=== PATIENT | female | born 1960 | race American Indian/Alaskan Native ===

== ENCOUNTER 2018-06-26 04:58 | Emergency (ER) | payer BC ==
[2018-06-26] MEDS ORDERED: NACL 0.9% 500 ML 500 ML IV ONE (05:06)
[2018-06-26] MEDS ORDERED: TYLENOL PO STA (05:06)
[2018-06-26] MEDS ORDERED: IBUPROFEN PO ONE (05:31)
--- NOTE | 2018-06-26 05:32 | Event Note ---
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 No recent travel. Denies physical pain. Appears very clinically well. No recent antibiotic use. Reportedly receive influenza vaccination. EKG abnormal, however, no cardiac complaints endorsed. We will treat supportively and symptomatically, and obtain basic laboratory studies, urinalysis, rapid flu, rapid strep. Vital Signs 06/26/18 05:04 Temperature 103 F H Pulse Rate 109 H Respiratory 18 Rate Blood Pressure 130/73 [Right] O2 Sat by Pulse 96 Oximetry Lab Results 06/26/18 Range/Units 05:10 VBG pH 7.478 H (7.320-7.420)
--- NOTE | 2018-06-26 05:33 | XRay Report ---
PROCEDURE: XR CHEST ROUTINE 2V TECHNIQUE: PA and lateral views of the chest were obtained. HISTORY: possible Sepsis COMPARISONS: None FINDINGS: The lungs are clear. Pleural fluid is not seen. The heart size is normal. The lungs are not congested . The skeletal structures are well-maintained. IMPRESSION: Within normal limits.. This document is electronically signed by Miguel Valente MD., June 26 2018 05:31:02 AM ET
[2018-06-26 05:40] LABS: INR 1.19 (0.87-1.13)
[2018-06-26 05:45] LABS: Red Blood Count 4.08 M/mm3 (3.65-5.03)
[2018-06-26 05:46] LABS: Hematocrit 35.3 % (30.3-42.9); Hemoglobin 12.1 gm/dl (10.1-14.3); Mean Corpuscular HGB Conc 34 % (30-34); Mean Corpuscular Volume 86 fl (79-97); Platelet Count 177 K/mm3 (140-440); Red Cell Distribution Width 14.1 % (13.2-15.2)
[2018-06-26 05:47] LABS: Basophils % (Auto) 0.2 % (0.0-1.8); Lymphocytes # (Auto) 0.9 K/mm3 (1.2-5.4); Lymphocytes % (Auto) 5.3 % (13.4-35.0); Mean Platelet Volume 9.2 fl (6-12); Monocytes # (Auto) 0.9 K/mm3 (0.0-0.8); Monocytes % (Auto) 5.3 % (0.0-7.3)
[2018-06-26] MEDS ORDERED: NACL 0.9% 1000 ML 1,000 ML IV ONE (05:58)
[2018-06-26] MEDS ORDERED: K-DUR PO ONE (05:58)
[2018-06-26] MEDS ORDERED: NACL 0.9% 1000 ML 2,000 ML IV ONE (05:58)
[2018-06-26] MEDS ORDERED: KCL 10MEQ/100ML 10 MEQ/100 ML BAG IV SCH (06:00)
--- NOTE | 2018-06-26 06:19 | Emergency Department Report ---
HPI - General Chief Complaint: Fever Time Seen by Provider: 06/26/18 06:06 - HPI HPI: Room 3 The patient is a 58-year-old female presenting with a chief complaint fever and weakness. The patient states yesterday she began feeling weak/tired. At work she developed chills and body aches and fever. Patient states his symptoms continued today prompting her to have family bring her to the emergency department. Patient denies chest pain or shortness of breath. Patient denies cough or rhinorrhea. Patient denies dysuria or hematuria. The patient was to nausea but denies vomiting or diarrhea. Patient denies sick contacts. Patient has no complaints now at rest after receiving IV fluids and medication prior to my arrival Location: [See above] Duration: [See above] Quality: Aching Severity: [See above] Modifying factors: [see above] Context: [see above] Mode of transportation: [not driving] ED Past Medical Hx - Past Medical History Previous Medical History?: Yes Hx Hypertension: Yes - Surgical History Past Surgical History?: Yes Additional Surgical History: tubal ligation - Family History Family history: no significant - Social History Smoking Status: Never Smoker Substance Use Type: None - Medications Home Medications: Home Medications Medication Instructions Recorded Confirmed Last Taken Type HYDROcodone/APAP 5-325 [Mckinney 1 each PO Q6HR PRN #10 tablet 06/26/18 Unknown Rx 5/325] Ondansetron [Zofran ODT TAB] 8 mg PO Q8HR #20 tab.rapdis 06/26/18 Unknown Rx Sulfamethoxazole/Trimethoprim 1 each PO BID #20 tablet 06/26/18 Unknown Rx [Bactrim DS TAB] ED Review of Systems ROS: Stated complaint: FEVER, CHILLS, WEAKNESS, NAUSEA Other details as noted in HPI Constitutional: fever, weakness Eyes: denies: eye pain ENT: denies: congestion Respiratory: denies: shortness of breath Cardiovascular: denies: chest pain Endocrine: no symptoms reported Gastrointestinal: nausea. denies: vomiting Genitourinary: denies: dysuria, hematuria Musculoskeletal: denies: back pain Neurological: denies: headache Physical Exam - Physical Exam Vital Signs: Vital Signs 06/26/18 06/26/18 06/26/18 05:04 05:49 06:05 Temperature 103 F H Pulse Rate 109 H Respiratory 18 21 16 Rate Blood Pressure 130/73 [Right] O2 Sat by Pulse 96 97 Oximetry Physical Exam: GENERAL: The patient is well-developed well-nourished female lying on stretcher not appearing to be in acute distress. [] HEENT: Normocephalic. Atraumatic. Extraocular motions are intact. Patient has moist mucous membranes. NECK: Supple. No meningitic signs are noted. Trachea midline CHEST/LUNGS: Clear to auscultation. There is no respiratory distress noted. HEART/CARDIOVASCULAR: Regular. There is no tachycardia. There is no gallop rub or murmur. ABDOMEN: Abdomen is soft, nontender. Patient has normal bowel sounds. There is no abdominal distention. SKIN: There is no rash. There is no edema. There is no diaphoresis. NEURO: The patient is awake, alert, and oriented. The patient is cooperative. The patient has no focal neurologic deficits. The patient has normal speech MUSCULOSKELETAL: There is no evidence of acute injury. ED Course Vital Signs 06/26/18 06/26/18 06/26/18 05:04 05:49 06:05 Temperature 103 F H Pulse Rate 109 H Respiratory 18 21 16 Rate Blood Pressure 130/73 [Right] O2 Sat by Pulse 96 97 Oximetry ED Medical Decision Making - Lab Data Result diagrams: 06/26/18 05:10 06/26/18 05:10 - EKG Data -: EKG Interpreted by Me EKG shows normal: sinus rhythm Rate: tachycardia (101 bpm) - EKG Data When compared to previous EKG there are: previous EKG unavailable Interpretation: nonspecific ST-T wave nestor (ST depression in leads 1, 2, 3, aVF, V3, V4, V5, V6) - Radiology Data Radiology results: report reviewed (chest x-ray, right upper quadrant ultrasound), image reviewed (chest x-ray, right upper quadrant ultrasound) interpreted by me: Chest x-ray-no focal infiltrate, no pneumothorax [facility] [address] [place] [address] XRay Report Signed Patient: RAMON MADDEN MR#: [id number] : 1960 Acct:[id number] Age/Sex: 58 / F ADM Date: 06/26/18 Loc: ED Attending Dr: Ordering Physician: ED DOC, Date of Service: 06/26/18 Procedure(s): XR chest routine 2V Accession Number(s): [id number] cc: ED MD RAVEN Fluoro Time In Minutes: PROCEDURE: XR CHEST ROUTINE 2V TECHNIQUE: PA and lateral views of the chest were obtained. HISTORY: possible Sepsis COMPARISONS: None FINDINGS: The lungs are clear. Pleural fluid is not seen. The heart size is normal. The lungs are not congested. The skeletal structures are well-maintained. IMPRESSION: Within normal limits.. This document is electronically signed by Marycruz Valente MD., June 26 2018 05:31:02 AM ET Transcribed By: RB Dictated By: MARYCRUZ VALENTE MD Electronically Authenticated By: MARYCRUZ VALENTE MD Signed Date/Time: 06/26/1833 DD/ 5 TD/TT: 06/26/18526 [facility] [address] [place] [address] [facility] rasound Report Signed Patient: RAMON MADDEN MR#: [id number] : 1960 Acct:[id number] Age/Sex: 58 / F ADM Date: 06/26/18 Loc: ED Attending Dr: Ordering Physician: BLANCA TANNER MD Date of Service: 06/26/18 Procedure(s): US abdomen limited Accession Number(s): [id number] cc: BLANCA TANNER MD ULTRASOUND ABDOMEN LIMITED: TECHNIQUE: Transabdominal ultrasound with color Doppler interrogation. HISTORY: Elevated liver function tests, fever. COMPARISON: none. FINDINGS: LIVER: Normal. BILIARY SYSTEM: Normal. PANCREAS: Normal. RIGHT KIDNEY: Normal. PROXIMAL AORTA: Normal. ASCITES: None. IMPRESSION: Unremarkable exam. Transcribed By: TTR Dictated By: HENNA MCCARTHY JR, MD Electronically Authenticated By: HENNA MCCARTHY JR, MD Signed Date/Time: 06/26/18 08 DD/ 08 TD/TT: 06/26/18 08 - Differential Diagnosis pyelonephritis, influenza, bacteremia Critical care attestation.: If time is entered above; I have spent that time in minutes in the direct care of this critically ill patient, excluding procedure time. ED Disposition Clinical Impression: UTI (urinary tract infection), Leukocytosis, Elevated LFTs Disposition: DC-01 TO HOME OR SELFCARE Is pt being admited?: No Does the pt Need Aspirin: No Condition: Stable Instructions: Acute Pyelonephritis (ED) Additional Instructions: Return to the emergency department immediately should you develop worsening symptoms, fever, inability to tolerate food or liquid or any other concerns. Prescriptions: Sulfamethoxazole/Trimethoprim [Bactrim DS TAB] 1 each PO BID #20 tablet HYDROcodone/APAP 5-325 [Mckinney 5/325] 1 each PO Q6HR PRN #10 tablet PRN Reason: Pain Ondansetron [Zofran ODT TAB] 8 mg PO Q8HR #20 tab.rapdis Referrals: LIUDMILA SIEGELCOUNT INCLUDES THE [facility] MD JAVIER [Primary Care Provider] - 3-5 Days DIXON VELEZ MD [Staff Physician] - 3-5 Days (Dr. Velez is a first leveler. Please follow up with him for further evaluation of your elevated liver function tests) Time of Disposition: 08:27
[2018-06-26 07:15] LABS: Bacteria,Urine 3+ /HPF (Negative); Bilirubin,Urine NEG (Negative); Blood,Urine MOD (Negative); Color,Urine Amber (Yellow); Hyaline Casts,Urine 1 /LPF; Mucus,Urine FEW /HPF
[2018-06-26] MEDS ORDERED: ROCEPHIN/NS 1 GM/50 ML 1 GM/50 ML BAG IV ONE (07:24)
[2018-06-26 08:01] VITALS: BP 138/65
--- NOTE | 2018-06-26 08:08 | Ultrasound Report ---
ULTRASOUND ABDOMEN LIMITED: TECHNIQUE: Transabdominal ultrasound with color Doppler interrogation. HISTORY: Elevated liver function tests, fever. COMPARISON: none. FINDINGS: LIVER: Normal. BILIARY SYSTEM: Normal. PANCREAS: Normal. RIGHT KIDNEY: Normal. PROXIMAL AORTA: Normal. ASCITES: None. IMPRESSION: Unremarkable exam.
== END 2018-06-26 09:17 | disposition home or self-care (01) ==
LOC: ED 04:58 → EEVIPCON 04:58 → ED 09:17
DX: N39.0 Urinary tract infection, site not specified (principal); D72.829 Elevated white blood cell count, unspecified; I10 Essential (primary) hypertension; Z98.51 Tubal ligation status
CPT/HCPCS: 36415; 71046; 76705; 80053; 81001; 82140; 82550; 82805; 83735; 84484; 85025; 85610; 87040; 87086; 87116; 87400; 87430; 93005; 93010; 96365; 99285; J0696; J7030; J7040

== ENCOUNTER 2018-06-28 12:36 | Inpatient (IN) | payer BC ==
--- NOTE | 2018-06-28 12:52 | Emergency Department Report ---
Blank Doc - Documentation Documentation: This is a 58-year-old female that presents with n/v and weakness. Stated her GI sent her to the ED for further evaluation and treatment. This initial assessment/diagnostic orders/clinical plan/treatment(s) is/are subject to change based on patient's health status, clinical progression and re- assessment by fellow clinical providers in the ED. Further treatment and workup at subsequent clinical providers discretion. Patient/guardians urged not to elope from the ED as their condition may be serious if not clinically assessed and managed. Initial orders include: 1- Patient sent to MAIN ED for further evaluation and treatment 2- labs 3- EKG
[2018-06-28] MEDS ORDERED: ZOFRAN ODT PO ONE (12:55)
[2018-06-28] MEDS ORDERED: NACL 0.9% 1000 ML 1,000 ML IV ONE (13:48)
--- NOTE | 2018-06-28 13:48 | Emergency Department Report ---
HPI - General Chief Complaint: Nausea/Vomiting/Diarrhea Time Seen by Provider: 06/28/18 12:49 - HPI HPI: 58-year-old -[place] female presents to the emergency department with complaint of continued nausea, vomiting and some generalized weakness. The patient was here 2 days ago and diagnosed with pyelonephritis. She had the nausea and vomiting at that time but also was having some chills and subjective fever, which she says has resolved. She had an ultrasound done at that time that did not show any acute process. She was found to have a urinary tract infection and was given Rocephin and sent home with antibiotics. She was referred to gastroenterology and did have an outpatient follow-up. She presents with the office note from Dr. Levin saying that the patient has intractable nausea and vomiting, elevated liver enzymes, and should come to the emergency department for further treatment and evaluation. Otherwise she denies any past medical history. No recent travel. The patient says that she has been taking the antibiotics for the previous urinary tract infection. ED Past Medical Hx - Past Medical History Previous Medical History?: Yes Hx Hypertension: Yes - Surgical History Past Surgical History?: Yes Additional Surgical History: tubal ligation - Social History Smoking Status: Never Smoker Substance Use Type: Alcohol - Medications Home Medications: Home Medications Medication Instructions Recorded Confirmed Last Taken Type HYDROcodone/APAP 5-325 [Larimer 1 each PO Q6HR PRN #10 tablet 06/26/18 Unknown Rx 5/325] Ondansetron [Zofran ODT TAB] 8 mg PO Q8HR #20 tab.rapdis 06/26/18 Unknown Rx Sulfamethoxazole/Trimethoprim 1 each PO BID #20 tablet 06/26/18 Unknown Rx [Bactrim DS TAB] ED Review of Systems ROS: Stated complaint: N/V AND WEAKNESS Other details as noted in HPI Constitutional: weakness. denies: malaise Eyes: denies: eye pain, vision change ENT: denies: ear pain, throat pain Respiratory: denies: cough, shortness of breath Cardiovascular: denies: chest pain, palpitations Gastrointestinal: nausea, vomiting Genitourinary: denies: dysuria, discharge Musculoskeletal: denies: back pain, arthralgia Skin: denies: rash, lesions Neurological: denies: headache, weakness Physical Exam - Physical Exam Vital Signs: Vital Signs 06/28/18 12:50 Temperature 100.8 F H Pulse Rate 90 Respiratory 16 Rate Blood Pressure 132/63 O2 Sat by Pulse 96 Oximetry Physical Exam: GENERAL: The patient is well-developed well-nourished. HENT: Normocephalic. Atraumatic. Patient has moist mucous membranes. EYES: Extraocular motions are intact. Pupils equal reactive to light bilaterally. NECK: Supple. Trachea is midline. CHEST/LUNGS: Clear to auscultation. There is no respiratory distress noted. HEART/CARDIOVASCULAR: Regular. There is no tachycardia. There is no murmur. ABDOMEN: Abdomen is soft, nontender. Patient has normal bowel sounds. There is no abdominal distention. SKIN: Skin is warm and dry. NEURO: The patient is awake, alert, and oriented. The patient is cooperative. The patient has no focal neurologic deficits. The patient has normal speech. MUSCULOSKELETAL: There is no tenderness or deformity. There is no evidence of acute injury. ED Course Vital Signs 06/28/18 12:50 Temperature 100.8 F H Pulse Rate 90 Respiratory 16 Rate Blood Pressure 132/63 O2 Sat by Pulse 96 Oximetry - Consultations Consultation #1: 06/28/18 18:23 I spoke with the general surgeon on-call, Dr. Wynne, regarding the CT findings of acute appendicitis. Given that the patient does not have any abdominal pain and does not appear in any acute distress, he asked for the patient to be admitted to the hospitalist service and he will see the patient as a consult. IVF and IV antibiotics. ED Medical Decision Making - Lab Data Result diagrams: 06/28/18 13:38 06/28/18 13:38 - EKG Data -: EKG Interpreted by Id EKG shows normal: sinus rhythm, axis, intervals, QRS complexes (LVH), ST-T waves Rate: normal - EKG Data Interpretation: LVH - Radiology Data Radiology results: report reviewed PROCEDURE: CT ABDOMEN PELVIS WO CON TECHNIQUE: Computerized axial tomography of the abdomen and pelvis was performed without intravenous contrast. This study is performed without intravascular contrast material and its sensitivity for abdominal and pelvic pathology, including neoplasms, inflammation, abscess, free fluid, thrombosis, arterial dissection and infarction, is reduced compared with a contrast enhanced study. HISTORY: Abd pain COMPARISONS: None . PROCEDURE: CT ABDOMEN PELVIS WO CON TECHNIQUE: Computerized axial tomography of the abdomen and pelvis was performed without intravenous contrast. This study is performed without intravascular contrast material and its sensitivity for abdominal and pelvic pathology, including neoplasms, inflammation, abscess, free fluid, thrombosis, arterial dissection and infarction, is reduced compared with a contrast enhanced study. HISTORY: Abd pain COMPARISONS: None . FINDINGS: Slight delay in interpretation, the initial exam was incomplete. Lower Lung whitley: No focal abnormalities seen. Upper Abdomen: There is a subtle low-density lesion in the right lobe of the liver inferiorly measuring 6.5 x 4.7 cm seen on axial image 47 series 2. The unenhanced images of the liver otherwise unremarkable. The gallbladder, adrenal glands, pancreas and spleen are unremarkable. Kidneys, Ureters and Urinary bladder: No abnormalities are seen. Retroperitoneum: Abdominal aorta appears normal. Nonspecific subcentimeter lymph nodes are seen in the retroperitoneum. No pathologically enlarged lymph nodes are identified. Bowel: The appendix is distended measuring 1.5 cm with diffuse inflammatory change in the adjacent mesentery. The appearance is consistent with acute appendicitis. No abscess, ascites or free intraperitoneal gas is visualized. No evidence of bowel obstruction. Bowel loops otherwise unremarkable. Small umbilical hernia containing adipose tissue is visualized. No herniated loops of bowel are seen. Reproductive organs: Uterus is retroverted. No abnormal adnexal masses are seen. Other: None IMPRESSION: Findings consistent with acute appendicitis. No abscess, free air or bowel obstruction visualized. Abnormal low-density lesion right lobe of the liver measuring 6.5 cm. Follow-up dynamic contrast enhanced CT scan is recommended for further evaluation. Both benign and malignant lesions of the liver could present in this manner. Critical value: I discussed these findings in detail with ANABELA Voss on 06/28/2018 at 5:19 PM Eastern standard time. She informs me the attending physician will be notified immediately. This document is electronically signed by Obey eLonard MD., Jun 28 2018 05:22:52 PM ET Transcribed By: VIANNEY Dictated By: OBEY LEONARD MD Electronically Authenticated By: OBEY LEONARD MD Signed Date/Time: 06/28/18 9760 - Medical Decision Making Patient presents with ongoing nausea and vomiting that has now caused her to have some generalized weakness. Patient's labs show a leukocytosis and some elevation in her LFTs and some renal insufficiency unchanged from previous. She previously had a negative ultrasound of the abdomen done so this time a CT scan of the abdomen and pelvis without contrast was done. It shows a 6.5 cm liver mass and concerns for acute appendicitis. I spoke with general surgeon documentation analyst who will see the patient has a consult and would like the patient admitted to the hospitalist service. Vital signs stable throughout her ED course. All of the labs, imaging and the plan for admission were discussed with the patient and she understands and agrees. The patient was accepted for admission by the hospitalist service, Dr. Tang. - Differential Diagnosis gastritis, colitis, malignancy, appendicitis Critical Care Time: No Critical care attestation.: If time is entered above; I have spent that time in minutes in the direct care of this critically ill patient, excluding procedure time. ED Disposition Clinical Impression: Liver mass Acute appendicitis Qualifiers: Acute appendicitis type: unspecified acute appendicitis type Qualified Code(s): K35.80 - Unspecified acute appendicitis Intractable nausea and vomiting Qualifiers: Vomiting type: unspecified Qualified Code(s): R11.2 - Nausea with vomiting, unspecified Disposition: DC-09 OP ADMIT IP TO THIS HOSP Is pt being admited?: Yes Condition: Fair Time of Disposition: 18:28
[2018-06-28 13:55] LABS: Hematocrit 36.3 % (30.3-42.9); Hemoglobin 12.6 gm/dl (10.1-14.3); Mean Corpuscular HGB Conc 35 % (30-34); Mean Corpuscular Volume 87 fl (79-97); Platelet Count 188 K/mm3 (140-440); Red Cell Distribution Width 14.5 % (13.2-15.2)
[2018-06-28 14:13] LABS: Albumin 3.5 g/dL (3.9-5); Bilirubin,Direct 0.8 mg/dL (0-0.2); Calcium 9.2 mg/dL (8.4-10.2)
[2018-06-28 14:18] LABS: Bacteria,Urine 1+ /HPF (Negative); Bilirubin,Urine NEG (Negative); Blood,Urine MOD (Negative); Color,Urine Amber (Yellow); Mucus,Urine FEW /HPF
[2018-06-28 14:43] LABS: Band Neutrophils # (Manual) 0.5 K/mm3; Basophils % (Manual) 0 % (0.0-1.8); Eosinophils % (Manual) 0 % (0.0-4.3); Total Cells Counted 100
[2018-06-28 14:44] LABS: Platelet Estimate Consistent w Auto; RBC Morphology Normal
[2018-06-28] MEDS: KCL 10MEQ/100ML 10 MEQ/100 ML BAG IV SCH ×3 (15:18→23:02)
[2018-06-28] MEDS ORDERED: REGLAN IV ONE (15:53)
--- NOTE | 2018-06-28 17:24 | Cat Scan Report ---
PROCEDURE: CT ABDOMEN PELVIS WO CON TECHNIQUE: Computerized axial tomography of the abdomen and pelvis was performed without intravenous contrast. This study is performed without intravascular contrast material and its sensitivity for ab dominal and pelvic pathology, including neoplasms, inflammation, abscess, free fluid, thrombosis, art erial dissection and infarction, is reduced compared with a contrast enhanced study. HISTORY: Abd pain COMPARISONS: None . PROCEDURE: CT ABDOMEN PELVIS WO CON TECHNIQUE: Computerized axial tomography of the abdomen and pelvis was performed without intravenous contrast. This study is performed without intravascular contrast material and its sensitivity for ab dominal and pelvic pathology, including neoplasms, inflammation, abscess, free fluid, thrombosis, art erial dissection and infarction, is reduced compared with a contrast enhanced study. HISTORY: Abd pain COMPARISONS: None . FINDINGS: Slight delay in interpretation, the initial exam was incomplete. Lower Lung whitley: No focal abnormalities seen. Upper Abdomen: There is a subtle low-density lesion in the right lobe of the liver inferiorly measur ing 6.5 x 4.7 cm seen on axial image 47 series 2. The unenhanced images of the liver otherwise unrema rkable. The gallbladder, adrenal glands, pancreas and spleen are unremarkable. Kidneys, Ureters and Urinary bladder: No abnormalities are seen. Retroperitoneum: Abdominal aorta appears normal. Nonspecific subcentimeter lymph nodes are seen in the retroperitoneum. No pathologically enlarged ly mph nodes are identified. Bowel: The appendix is distended measuring 1.5 cm with diffuse inflammatory change in the adjacent m esentery. The appearance is consistent with acute appendicitis. No abscess, ascites or free intraperi toneal gas is visualized. No evidence of bowel obstruction. Bowel loops otherwise unremarkable. Small umbilical hernia containing adipose tissue is visualized. No herniated loops of bowel are seen. Reproductive organs: Uterus is retroverted. No abnormal adnexal masses are seen. Other: None IMPRESSION: Findings consistent with acute appendicitis. No abscess, free air or bowel obstruction visualized. Abnormal low-density lesion right lobe of the liver measuring 6.5 cm. Follow-up dynamic contrast enha nced CT scan is recommended for further evaluation. Both benign and malignant lesions of the liver co uld present in this manner. Critical value: I discussed these findings in detail with ANABELA Voss on 06/28/2018 at 5:19 PM Ea allison standard time. She informs me the attending physician will be notified immediately. This document is electronically signed by Jono Saucedo MD., Jun 28 2018 05:22:52 PM ET
[2018-06-28] MEDS ORDERED: ZOSYN/NS 4.5GM/100ML 4.5 GM/100 ML VIAL IV ONE (17:33)
[2018-06-28] MEDS ORDERED: MORPHINE IV PRN (18:00)
[2018-06-28] MEDS ORDERED: ZOFRAN IV PRN (18:00)
[2018-06-28] MEDS ORDERED: SODIUM CHLORIDE FLUSH SYRINGE 10 ML IV PRN (18:00)
[2018-06-28] MEDS ORDERED: PROVENTIL IH PRN (18:00)
[2018-06-28] MEDS ORDERED: TYLENOL PO PRN (18:00)
[2018-06-28] MEDS ORDERED: K-DUR PO ONE (18:22)
--- NOTE | 2018-06-28 19:10 | History and Physical Report ---
History of Present Illness Date of admission: 06/28/18 18:00 Chief complaint: I feel sick, and im throwing up History of present illness: 58 YO Female with Obesity, HTN presents to ED for evaluation. Pt states that she has experienced nausea, and multiple episodes of vomiting over the past 3 days with persistent symptoms over the same time frame. Pt was seen and evaluated in the ED at [facility] 3 days ago and discharged with oral antibiotics and outpatient F/U with GI service. Pt seen and evaluated by the Card Punching Machine Operator and was found to have the aforementioned symptoms. Pt instructed to seek further care. Pt reevaluated in ED and found to have new evidence on CT Abdomen/Pelvis which is consistent with Acute Appendicitis. Pt also found to have evidence of SIRS and Acute Renal Failure. Pt denies fever, chills, CP, Palpitations, Trauma, BRBPR, Ingestion of food/water from new/different sources. Surgery team consulted in ED. Pt initiated on IV antibiotic therapy and admitted to Med/Surgical Floor. No prior admission for review. All listed medication reconciled at time of admission. - Past History Past Medical History: hypertension, other (Obesity) Past Surgical History: Other (Tubal ligation) Social history: , lives with family. denies: smoking, alcohol abuse, prescription drug abuse Family history: hypertension Medications and Allergies Allergies Allergy/AdvReac Type Severity Reaction Status Date / Time No Known Allergies Allergy Verified 06/26/18 05:04 Home Medications Medication Instructions Recorded Confirmed Last Taken Type HYDROcodone/APAP 5-325 [[place] 1 each PO Q6HR PRN #10 tablet 06/26/18 Unknown Rx 5/325] Ondansetron [Zofran ODT TAB] 8 mg PO Q8HR #20 tab.rapdis 06/26/18 Unknown Rx Sulfamethoxazole/Trimethoprim 1 each PO BID #20 tablet 06/26/18 Unknown Rx [Bactrim DS TAB] Active Meds: Active Medications Acetaminophen (Tylenol) 650 mg PO Q4H PRN PRN Reason: Pain MILD(1-3)/Fever >100.5/PALOMO Albuterol (Proventil) 2.5 mg IH Q4HRT PRN PRN Reason: Shortness Of Breath Cefepime HCl (Maxipime/Ns 2 Gm/100 Ml) 2 gm in 100 mls @ 200 mls/hr IV Q8HR CLAUDIA; Protocol Metronidazole (Flagyl 500 Mg/100 Ml) 500 mg in 100 mls @ 100 mls/hr IV Q8HR CLAUDIA; Protocol Morphine Sulfate (Morphine) 2 mg IV Q4H PRN PRN Reason: Pain, Moderate (4-6) Ondansetron HCl (Zofran) 4 mg IV Q8H PRN PRN Reason: Nausea And Vomiting Sodium Chloride (Sodium Chloride Flush Syringe 10 Ml) 10 ml IV BID CLAUDIA Sodium Chloride (Sodium Chloride Flush Syringe 10 Ml) 10 ml IV PRN PRN PRN Reason: LINE FLUSH Review of Systems Constitutional: no weight loss, no weight gain, no fever, no chills Ears, nose, mouth and throat: no ear pain, no ear discharge, no tinnitis, no decreased hearing, no nose pain Breasts: no change in shape, no swelling, no mass Cardiovascular: no chest pain, no orthopnea, no palpitations, no lightheadedness Respiratory: no cough, no cough with sputum, no excessive sputum, no hemoptysis, no shortness of breath Gastrointestinal: nausea, vomiting, no constipation, no change in bowel habits, no hematochezia, no loss of appetite Genitourinary Female: no pelvic pain, no flank pain, no menorrhagia, no dysuria, no urinary frequency, no urgency Rectal: no pain, no incontinence, no bleeding Musculoskeletal: no neck stiffness, no neck pain, no shooting arm pain, no arm numbness/tingling, no low back pain Integumentary: no rash, no pruritis, no redness, no sores, no wounds Neurological: no transient paralysis, no paralysis, no weakness, no parathesias, no numbness Psychiatric: no anxiety, no memory loss, no change in sleep habits, no sleep disturbances, no insomnia, no hypersomnia, no change in appetite, no change in libido Endocrine: no cold intolerance, no heat intolerance, no polyphagia, no excessive thirst, no polydipsia, no polyuria, no nocturia Hematologic/Lymphatic: no easy bruising, no easy bleeding, no lymphadenopathy, no lymphedema Allergic/Immunologic: no urticaria, no allergic rhinitis, no persistent infections, no anaphylaxis, no angioedema Exam - Constitutional Vitals: Temp Pulse Resp BP Pulse Ox 100.8 F H 76 24 115/57 96 06/28/18 12:50 06/28/18 17:30 06/28/18 17:30 06/28/18 17:30 06/28/18 17:30 General appearance: Present: mild distress, obese - EENT Eyes: Present: PERRL ENT: hearing intact, clear oral mucosa - Neck Neck: Present: supple, normal ROM - Respiratory Respiratory effort: normal Respiratory: bilateral: CTA - Cardiovascular Heart Sounds: Present: S1 & S2. Absent: rub, click - Extremities Extremities: pulses symmetrical, No edema Peripheral Pulses: within normal limits - Abdominal General gastrointestinal: Present: soft, non-tender, non-distended, normal bowel sounds Female genitourinary: Present: normal - Integumentary Integumentary: Present: clear, warm, dry - Musculoskeletal Musculoskeletal: gait normal, strength equal bilaterally - Psychiatric Psychiatric: appropriate mood/affect, intact judgment & insight - Neurologic Neurologic: CNII-XII intact, moves all extremities Results - Labs CBC & Chem 7: 06/28/18 13:38 06/28/18 13:38 Labs: Abnormal lab results 06/28/18 06/28/18 Range/Units 13:38 13:38 WBC 15.5 H (4.5-11.0) K/mm3 MCHC 35 H (30-34) % Seg Neuts % (Manual) 91.0 H (40.0-70.0) % Lymphocytes % (Manual) 4.0 L (13.4-35.0) % Seg Neutrophils # Man 14.1 H (1.8-7.7) K/mm3 Lymphocytes # (Manual) 0.6 L (1.2-5.4) K/mm3 Potassium 2.8 L* (3.6-5.0) mmol/L Chloride 95.8 L (98-107) mmol/L BUN 19 H (7-17) mg/dL Creatinine 1.7 H (0.7-1.2) mg/dL Glucose 143 H (65-100) mg/dL Total Bilirubin 1.30 H (0.1-1.2) mg/dL Direct Bilirubin 0.8 H (0-0.2) mg/dL AST 44 H (5-40) units/L ALT 84 H (7-56) units/L Albumin 3.5 L (3.9-5) g/dL Assessment and Plan - Patient Problems (1) Acute appendicitis Current Visit: Yes Status: Acute Qualifiers: Acute appendicitis type: unspecified acute appendicitis type Qualified Code(s): K35.80 - Unspecified acute appendicitis Plan to address problem: IV antibiotic therapy, CT Abdomen/Pelvis, Bowel rest, CBC, CMP, IVF resuscitation therapy, Surgical team consulted in ED, serial abdominal exam. (2) SIRS (systemic inflammatory response syndrome) Current Visit: Yes Status: Acute Plan to address problem: IV antibiotic therapy, CBC, CMP, Blood cultures, urinalysis, (3) Intractable nausea and vomiting Current Visit: Yes Status: Acute Qualifiers: Vomiting type: unspecified Qualified Code(s): R11.2 - Nausea with vomiting, unspecified Plan to address problem: Zofran prn, bowel rest, supportive care. (4) ARF (acute renal failure) with tubular necrosis Current Visit: Yes Status: Acute Plan to address problem: IVF resuscitation, monitor uop q shift, urine electrolytes, Nephrology consulted, (5) Elevated LFTs Current Visit: No Status: Acute Plan to address problem: CT Abdomen/pelvis, repeat LFT, GI consulted in ED. (6) Hypokalemia Current Visit: Yes Status: Acute Plan to address problem: repleted in ED, recheck in am. (7) DVT prophylaxis Current Visit: Yes Status: Acute Plan to address problem: SCD to BLE while in bed,
--- NOTE | 2018-06-28 19:24 | Event Note ---
Date: 06/28/[address] Lerma. Despite CT reading, patient has no pain in RLQ by history and exam. Pt is dehydrated by labs. Will resuscitate o/n, start Abx, check labs in AM and then re-evaluate. Will order additional bolus now.
[2018-06-28] MEDS ORDERED: NORCO 5/325 PO PRN (19:30)
[2018-06-28] MEDS: NACL 0.9% 1000 ML 1,000 ML IV ONE ×2 (20:26→21:58)
[2018-06-28] MEDS: NACL 0.9% 1000 ML 1,000 ML IV SCH (23:08)
[2018-06-28] MEDS: FLAGYL 500 MG/100 ML 500 MG/100 ML BAG IV SCH (23:10)
[2018-06-29] MEDS: KCL 10MEQ/100ML 10 MEQ/100 ML BAG IV SCH ×5 (00:20→19:59)
[2018-06-29] MEDS: MAXIPIME/NS 2 GM/100 ML 2 GM/100 ML BAG IV SCH ×4 (00:24→22:00)
[2018-06-29] MEDS: SODIUM CHLORIDE FLUSH SYRINGE 10 ML IV SCH ×3 (00:37→22:30)
[2018-06-29] MEDS ORDERED: ZOFRAN IV PRN (05:07)
[2018-06-29 06:11] LABS: Hematocrit 31.3 % (30.3-42.9); Hemoglobin 10.7 gm/dl (10.1-14.3); Mean Corpuscular HGB Conc 34 % (30-34); Mean Corpuscular Volume 88 fl (79-97); Platelet Count 198 K/mm3 (140-440); Red Blood Count 3.56 M/mm3 (3.65-5.03); Red Cell Distribution Width 14.6 % (13.2-15.2)
[2018-06-29] MEDS: FLAGYL 500 MG/100 ML 500 MG/100 ML BAG IV SCH ×3 (06:20→22:45)
[2018-06-29 06:27] LABS: BUN/Creatinine Ratio 9; Blood Urea Nitrogen 10 mg/dL (7-17); Calcium 8.5 mg/dL (8.4-10.2); Hemolysis Index 0
[2018-06-29] MEDS: TYLENOL PR PRN ×2 (06:40→12:23)
[2018-06-29] MEDS ORDERED: PHENERGAN PR PRN (07:40)
--- NOTE | 2018-06-29 07:41 | Consultation ---
History of Present Illness Consult date: 06/29/18 Reason for consult: other (vomiting) Requesting physician: BARBARA BLACK Chief complaint: vomiting and weakness - History of present illness History of present illness: 58yo F presented to the emergency room last night due to persistent vomiting. She originally began to feel ill this past Tuesday. At that time she was seen in the emergency room and felt the have a viral illness or possibly pyelonephritis. She was started on antibiotics and told to follow-up with GI. The G.I. physician instructed the patient to go to the emergency room again last night for reevaluation of the continued vomiting. On Tuesday, her symptoms began with generalized weakness, achiness, fevers, chills, nausea and vomiting. Denies any chest pain or difficulty breathing. No productive cough. No dysuria symptoms. The fevers and chills resolved but her vomiting became worse. She has no pain in the abdomen unless she turns to the side and then she may feel a slight ache in the sides. She last past flatus yesterday. Past History Past Medical History: hypertension, other (Obesity) Past Surgical History: Other (Tubal ligation) Social history: , lives with family. denies: smoking, alcohol abuse, prescription drug abuse Family history: hypertension Medications and Allergies Allergies Allergy/AdvReac Type Severity Reaction Status Date / Time No Known Allergies Allergy Verified 06/26/18 05:04 Home Medications Medication Instructions Recorded Confirmed Last Taken Type HYDROcodone/APAP 5-325 [[place] 1 each PO Q6HR PRN #10 tablet 06/26/18 06/29/18 Unknown Rx 5/325] Ondansetron [Zofran ODT TAB] 8 mg PO Q8HR #20 tab.rapdis 06/26/18 06/29/18 Unknown Rx Sulfamethoxazole/Trimethoprim 1 each PO BID #20 tablet 06/26/18 06/29/18 Unknown Rx [Bactrim DS TAB] Amlodipine Besylate 10 mg PO DAILY 06/29/18 06/29/18 Unknown History Losartan/Hydrochlorothiazide 1 tab PO DAILY 06/29/18 06/29/18 Unknown History [Losartan-Hctz 100-25 mg Tab] Naproxen 1 tab PO BID PRN 06/29/18 06/29/18 Unknown History Active Meds: Active Medications Acetaminophen (Tylenol) 650 mg IN Q6H PRN PRN Reason: Pain, Mild (1-3) Last Admin: 06/29/18 06:40 Dose: 650 mg Documented by: Acetaminophen/Hydrocodone Bitart ([place] 5/325) 1 each PO Q6HR PRN PRN Reason: Pain Albuterol (Proventil) 2.5 mg IH Q4HRT PRN PRN Reason: Shortness Of Breath Cefepime HCl (Maxipime/Ns 2 Gm/100 Ml) 2 gm in 100 mls @ 200 mls/hr IV Q8HR CLAUDIA; Protocol Last Admin: 06/29/18 06:18 Dose: 200 mls/hr Documented by: Metronidazole (Flagyl 500 Mg/100 Ml) 500 mg in 100 mls @ 100 mls/hr IV Q8HR CLAUDIA; Protocol Last Admin: 06/29/18 06:20 Dose: 100 mls/hr Documented by: Sodium Chloride (Nacl 0.9% 1000 Ml) 1,000 mls @ 125 mls/hr IV DIRECT CLAUDIA Last Admin: 06/28/18 23:08 Dose: 125 mls/hr Documented by: Morphine Sulfate (Morphine) 2 mg IV Q4H PRN PRN Reason: Pain, Moderate (4-6) Ondansetron HCl (Zofran) 4 mg IV Q6HR PRN PRN Reason: Nausea And Vomiting Last Admin: 06/29/18 05:21 Dose: 4 mg Documented by: Sodium Chloride (Sodium Chloride Flush Syringe 10 Ml) 10 ml IV BID [facility] Last Admin: 06/29/18 00:37 Dose: 10 ml Documented by: Sodium Chloride (Sodium Chloride Flush Syringe 10 Ml) 10 ml IV PRN PRN PRN Reason: LINE FLUSH Review of Systems - Constitutional fever, weakness, poor appetite, no chronic pain - Cardiovascular no chest pain, no lightheadedness, no shortness of breath - Respiratory shortness of breath (only with activity - only since tuesday), no cough - Gastrointestinal nausea, vomiting, change in bowel habits, loss of appetite, no abdominal pain, no hematemesis, no coffee ground emesis, no BRBPR, no melena, no hematochezia, no dyspepsia/bloating - Genitourinary Genitourinary: flank pain (minimal when she turns to the sides), no dysuria - Muskuloskeletal no low back pain Exam Vital Signs Temp Pulse Resp BP Pulse Ox 100.8 F H 90 16 132/63 96 06/28/18 12:50 06/28/18 12:50 06/28/18 12:50 06/28/18 12:50 06/28/18 12:50 - General physical appearance Positive: no distress, no pain, obese, other (appears mildly ill) - Eyes Positive: normal occular movement. Negative: icteric - Respiratory Positive: normal expansion, normal respiratory effort, clear to auscultation - Cardiovascular Rhythm: regular Heart Sounds: Present: systolic murmur - Abdomen Abdomen: Present: soft, bowel sounds hypoactive. Absent: tender, distended, masses, guarding, rigid, surgical scars - Integumentary no rash, no growths, no abnormal pigmentation - Neurologic Neurologic: alert and oriented to time, place and person, motor strength and sensation are grossly intact - Psychiatric Psychiatric: appropriate mood/affect, intact judgment & insight, cooperative Results - Labs 06/29/18 06:00 06/29/18 04:36 Abnormal lab results 06/28/18 06/28/18 06/29/18 Range/Units 13:38 13:38 04:36 WBC 15.5 H (4.5-11.0) K/mm3 RBC (3.65-5.03) M/mm3 MCHC 35 H (30-34) % Seg Neuts % (Manual) 91.0 H (40.0-70.0) % Lymphocytes % (Manual) 4.0 L (13.4-35.0) % Seg Neutrophils # Man 14.1 H (1.8-7.7) K/mm3 Lymphocytes # (Manual) 0.6 L (1.2-5.4) K/mm3 Potassium 2.8 L* 3.1 L (3.6-5.0) mmol/L Chloride 95.8 L (98-107) mmol/L BUN 19 H (7-17) mg/dL Creatinine 1.7 H (0.7-1.2) mg/dL Glucose 143 H 113 H (65-100) mg/dL Magnesium 2.50 H (1.7-2.3) mg/dL Total Bilirubin 1.30 H (0.1-1.2) mg/dL Direct Bilirubin 0.8 H (0-0.2) mg/dL AST 44 H (5-40) units/L ALT 84 H (7-56) units/L Albumin 3.5 L (3.9-5) g/dL 06/29/18 Range/Units 06:00 WBC 16.7 H (4.5-11.0) K/mm3 RBC 3.56 L (3.65-5.03) M/mm3 MCHC (30-34) % Seg Neuts % (Manual) (40.0-70.0) % Lymphocytes % (Manual) (13.4-35.0) % Seg Neutrophils # Man (1.8-7.7) K/mm3 Lymphocytes # (Manual) (1.2-5.4) K/mm3 Potassium (3.6-5.0) mmol/L Chloride (98-107) mmol/L BUN (7-17) mg/dL Creatinine (0.7-1.2) mg/dL Glucose (65-100) mg/dL Magnesium (1.7-2.3) mg/dL Total Bilirubin (0.1-1.2) mg/dL Direct Bilirubin (0-0.2) mg/dL AST (5-40) units/L ALT (7-56) units/L Albumin (3.9-5) g/dL Diabetes panel 06/28/18 06/29/18 Range/Units 13:38 04:36 Sodium 138 140 (137-145) mmol/L Potassium 2.8 L* 3.1 L (3.6-5.0) mmol/L Chloride 95.8 L 100.0 (98-107) mmol/L Carbon Dioxide 26 24 (22-30) mmol/L BUN 19 H 10 (7-17) mg/dL Creatinine 1.7 H 1.1 (0.7-1.2) mg/dL Glucose 143 H 113 H (65-100) mg/dL Calcium 9.2 8.5 (8.4-10.2) mg/dL AST 44 H (5-40) units/L ALT 84 H (7-56) units/L Alkaline Phosphatase 109 (35-129) units/L Total Protein 7.2 (6.3-8.2) g/dL Albumin 3.5 L (3.9-5) g/dL Calcium panel 06/28/18 06/29/18 Range/Units 13:38 04:36 Calcium 9.2 8.5 (8.4-10.2) mg/dL Phosphorus 2.70 (2.5-4.5) mg/dL Albumin 3.5 L (3.9-5) g/dL Pituitary panel 06/28/18 06/29/18 Range/Units 13:38 04:36 Sodium 138 140 (137-145) mmol/L Potassium 2.8 L* 3.1 L (3.6-5.0) mmol/L Chloride 95.8 L 100.0 (98-107) mmol/L Carbon Dioxide 26 24 (22-30) mmol/L BUN 19 H 10 (7-17) mg/dL Creatinine 1.7 H 1.1 (0.7-1.2) mg/dL Glucose 143 H 113 H (65-100) mg/dL Calcium 9.2 8.5 (8.4-10.2) mg/dL Adrenal panel 06/28/18 06/29/18 Range/Units 13:38 04:36 Sodium 138 140 (137-145) mmol/L Potassium 2.8 L* 3.1 L (3.6-5.0) mmol/L Chloride 95.8 L 100.0 (98-107) mmol/L Carbon Dioxide 26 24 (22-30) mmol/L BUN 19 H 10 (7-17) mg/dL Creatinine 1.7 H 1.1 (0.7-1.2) mg/dL Glucose 143 H 113 H (65-100) mg/dL Calcium 9.2 8.5 (8.4-10.2) mg/dL Total Bilirubin 1.30 H (0.1-1.2) mg/dL AST 44 H (5-40) units/L ALT 84 H (7-56) units/L Alkaline Phosphatase 109 (35-129) units/L Total Protein 7.2 (6.3-8.2) g/dL Albumin 3.5 L (3.9-5) g/dL - Imaging CT scan - abdomen: report reviewed, image reviewed CT scan - pelvis: report reviewed, image reviewed Assessment and Plan - Patient Problems (1) Acute appendicitis Current Visit: Yes Status: Acute Qualifiers: Acute appendicitis type: unspecified acute appendicitis type Qualified Code(s): K35.80 - Unspecified acute appendicitis Plan to address problem: Pt stable. Patient's WBC remains elevated. She continues to feel ill. Abdominal exam is unimpressive. However with the overall constellation of symptoms and the CT scan, I think it is reasonable to move forward with laparoscopic appendectomy. Discussed medical option of IV antibiotic therapy only. Discussed pros and cons of each. Procedure, risks, benefits were discussed. All questions were answered. Patient wishes to proceed with surgery. Consent was obtained. We will go to the operating room today. Please call with questions. Time=30min
[2018-06-29 08:39] LABS: Band Neutrophils # (Manual) 0.5 K/mm3; Basophils % (Manual) 0 % (0.0-1.8); Eosinophils % (Manual) 0 % (0.0-4.3); Giant Platelets Rare; Platelet Estimate Consistent w Auto; RBC Morphology Normal; Total Cells Counted 100
--- NOTE | 2018-06-29 09:35 | Consultation ---
History of Present Illness - Reason for Consult Consult date: 06/29/18 acute renal failure, hypokalemia - History of Present Illness The patient is a 58 YO Female with history significant for Obesity and HTN who presented to [facility] ED for evaluation of nausea, vomiting, fever and feeling unwell for the past 4-5 days. Patient also reports decreased appetite, poor PO intake and generalized weakness. Pt was seen and evaluated in the ED on 06/26/18 and discharged with oral antibiotics and outpatient F/U with GI service. On further evaluation she was found to have Acute appendicitis on CT abdomen, creatinine 1.7, K 2.8, elevated transaminases and luekocytosis. Pt denies abd pain, dysuria, hematuria, rash, CP, cough, sob, legs welling, dizziness or syncope. Nephrology was consulted for further evaluation. Past History Past Medical History: hypertension, other (Obesity) Past Surgical History: Other (Tubal ligation) Social history: , lives with family. denies: smoking, alcohol abuse, prescription drug abuse Family history: hypertension Medications and Allergies Allergies Allergy/AdvReac Type Severity Reaction Status Date / Time No Known Allergies Allergy Verified 06/26/18 05:04 Home Medications Medication Instructions Recorded Confirmed Last Taken Type HYDROcodone/APAP 5-325 [[place] 1 each PO Q6HR PRN #10 tablet 06/26/18 06/29/18 Unknown Rx 5/325] Ondansetron [Zofran ODT TAB] 8 mg PO Q8HR #20 tab.rapdis 06/26/18 06/29/18 Unknown Rx Sulfamethoxazole/Trimethoprim 1 each PO BID #20 tablet 06/26/18 06/29/18 Unknown Rx [Bactrim DS TAB] Amlodipine Besylate 10 mg PO DAILY 06/29/18 06/29/18 Unknown History Losartan/Hydrochlorothiazide 1 tab PO DAILY 06/29/18 06/29/18 Unknown History [Losartan-Hctz 100-25 mg Tab] Naproxen 1 tab PO BID PRN 06/29/18 06/29/18 Unknown History Active Meds: Active Medications Acetaminophen (Tylenol) 650 mg [place] Q6H PRN PRN Reason: Pain, Mild (1-3) Last Admin: 06/29/18 06:40 Dose: 650 mg Documented by: Acetaminophen/Hydrocodone Bitart ([place] 5/325) 1 each PO Q6HR PRN PRN Reason: Pain, Moderate (4-6) Albuterol (Proventil) 2.5 mg IH Q4HRT PRN PRN Reason: Shortness Of Breath Cefepime HCl (Maxipime/Ns 2 Gm/100 Ml) 2 gm in 100 mls @ 200 mls/hr IV Q8HR CLAUDIA; Protocol Last Admin: 06/29/18 06:18 Dose: 200 mls/hr Documented by: Metronidazole (Flagyl 500 Mg/100 Ml) 500 mg in 100 mls @ 100 mls/hr IV Q8HR CLAUDIA; Protocol Last Admin: 06/29/18 06:20 Dose: 100 mls/hr Documented by: Sodium Chloride (Nacl 0.9% 1000 Ml) 1,000 mls @ 125 mls/hr IV DIRECT CLAUDIA Last Admin: 06/28/18 23:08 Dose: 125 mls/hr Documented by: Morphine Sulfate (Morphine) 2 mg IV Q4H PRN PRN Reason: Pain, Moderate (4-6) Ondansetron HCl (Zofran) 4 mg IV Q6HR PRN PRN Reason: Nausea And Vomiting Last Admin: 06/29/18 05:21 Dose: 4 mg Documented by: Potassium Chloride (K-Dur) 40 meq PO ONCE ONE Stop: 06/29/18 10:01 Promethazine HCl (Phenergan) 25 mg [place] Q6H PRN PRN Reason: Nausea And Vomiting Last Admin: 06/29/18 08:18 Dose: 25 mg Documented by: Sodium Chloride (Sodium Chloride Flush Syringe 10 Ml) 10 ml IV BID [facility] Last Admin: 06/29/18 00:37 Dose: 10 ml Documented by: Sodium Chloride (Sodium Chloride Flush Syringe 10 Ml) 10 ml IV PRN PRN PRN Reason: LINE FLUSH Review of Systems Constitutional: fever, anorexia, fatigue, weakness, poor appetite, no weight loss, no weight gain Breasts: deferred Cardiovascular: high blood pressure, no chest pain, no orthopnea, no palpitatio ns, no edema, no syncope, no lightheadedness, no shortness of breath, no leg edema Respiratory: no cough, no shortness of breath, no dyspnea on exertion Gastrointestinal: nausea, vomiting, no abdominal pain, no diarrhea, no hematemesis, no melena Genitourinary Female: no dysuria, no hematuria Rectal: no bleeding Integumentary: no rash, no redness, no jaundice Neurological: no paralysis, no seizures, no syncope, no change in speech, no change in mentation, no confusion, no memory loss Exam - Vital Signs Vital signs: Vital Signs Temp Pulse Resp BP Pulse Ox 100.8 F H 90 16 132/63 96 06/28/18 12:50 06/28/18 12:50 06/28/18 12:50 06/28/18 12:50 06/28/18 12:50 - General Appearance General appearance: well-developed, well-nourished, appears stated age, obese, other (not in distress) EENT: ATNC, PERRL, mucous membranes moist, hearing intact, vision intact Neck: Present: neck supple, trachea midline Respiratory: Clear to Ascultation Heart: regular, S1S2, no murmurs Gastrointestinal: Present: normoactive bowel sounds. Absent: tenderness, distended Integumentary: no rash, warm and dry Neurologic: no focal deficit, no asterixis, alert and oriented x3 Musculoskeletal: Present: other (no edema) Psychiatric: cooperative Results - Lab Results 06/29/18 06:00 06/29/18 09:43 Most recent lab results Calcium 8.5 mg/dL (8.4-10.2) 06/29/18 04:36 Phosphorus 2.70 mg/dL (2.5-4.5) 06/29/18 04:36 Magnesium 2.50 mg/dL (1.7-2.3) H 06/29/18 04:36 - Image Kidney/bladder ultrasound: other Assessment and Plan 1. Acute kidney injury: Vasomotor BECKY in the setting of volume depletion. CT abdomen was negative for hydro. Continue IV fluids. Renal function is improving. Avoid nephrotoxic agents. Meds dosage based on GFR. 2. FEN: Hypokalemia, replete K. Monitor lytes. 3. Acute Appendicitis: Followed by Gen. surgery. 4. SIRS. 5. Intractable N/V. 6. Elevated LFTs.
--- NOTE | 2018-06-29 09:50 | Gastroenterology Consultation ---
History of Present Illness - Reason for Consult Consult date: 06/29/18 elevated LFTs Requesting physician: LACEY GRAYSON - History of Present Illness Patient is a 58 y/o female with PMH of HTN and obesity who presented to ED with persistent N/V, weakness, fever, and remote abd pain, Upon admission, abd CT showed acute appendicitis to which she was admitted, along with SIRS, ARF, and hypokalemia. Surgery is following with laparoscopic appendectomy pending for today. GI has been consulted for elevated LFTs. This morning patient was resting in bed w/o acute distress. She reports continued N/V but no abd pain. Denies CP, SOB, wt loss, jaundice, signs of bleeding, or LGI symptoms. Has no hx or Fhx of liver disease. Drinks alcohol occasionally (~1-2 glasses on wine a month). No IV drug use. Does not take herbal supplements and denies any new medications except Bactrim given to her a few days ago for UTI. Past History Past Medical History: hypertension, other (Obesity) Past Surgical History: Other (Tubal ligation) Social history: , lives with family. denies: smoking, alcohol abuse (drinks wine occasionally), prescription drug abuse Family history: hypertension Medications and Allergies Allergies Allergy/AdvReac Type Severity Reaction Status Date / Time No Known Allergies Allergy Verified 06/26/18 05:04 Home Medications Medication Instructions Recorded Confirmed Last Taken Type HYDROcodone/APAP 5-325 [[place] 1 each PO Q6HR PRN #10 tablet 06/26/18 06/29/18 Unknown Rx 5/325] Ondansetron [Zofran ODT TAB] 8 mg PO Q8HR #20 tab.rapdis 06/26/18 06/29/18 Unknown Rx Sulfamethoxazole/Trimethoprim 1 each PO BID #20 tablet 06/26/18 06/29/18 Unknown Rx [Bactrim DS TAB] Amlodipine Besylate 10 mg PO DAILY 06/29/18 06/29/18 Unknown History Losartan/Hydrochlorothiazide 1 tab PO DAILY 06/29/18 06/29/18 Unknown History [Losartan-Hctz 100-25 mg Tab] Naproxen 1 tab PO BID PRN 06/29/18 06/29/18 Unknown History Active Meds: Active Medications Acetaminophen (Tylenol) 650 mg OK Q6H PRN PRN Reason: Pain, Mild (1-3) Last Admin: 06/29/18 06:40 Dose: 650 mg Documented by: Acetaminophen/Hydrocodone Bitart ([place] 5/325) 1 each PO Q6HR PRN PRN Reason: Pain, Moderate (4-6) Albuterol (Proventil) 2.5 mg IH Q4HRT PRN PRN Reason: Shortness Of Breath Cefepime HCl (Maxipime/Ns 2 Gm/100 Ml) 2 gm in 100 mls @ 200 mls/hr IV Q8HR CLAUDIA; Protocol Last Admin: 06/29/18 06:18 Dose: 200 mls/hr Documented by: Metronidazole (Flagyl 500 Mg/100 Ml) 500 mg in 100 mls @ 100 mls/hr IV Q8HR CLAUDIA; Protocol Last Admin: 06/29/18 06:20 Dose: 100 mls/hr Documented by: Sodium Chloride (Nacl 0.9% 1000 Ml) 1,000 mls @ 125 mls/hr IV DIRECT CLAUDIA Last Admin: 06/28/18 23:08 Dose: 125 mls/hr Documented by: Morphine Sulfate (Morphine) 2 mg IV Q4H PRN PRN Reason: Pain, Moderate (4-6) Ondansetron HCl (Zofran) 4 mg IV Q6HR PRN PRN Reason: Nausea And Vomiting Last Admin: 06/29/18 05:21 Dose: 4 mg Documented by: Potassium Chloride (K-Dur) 40 meq PO ONCE ONE Stop: 06/29/18 10:01 Promethazine HCl (Phenergan) 25 mg OK Q6H PRN PRN Reason: Nausea And Vomiting Last Admin: 06/29/18 08:18 Dose: 25 mg Documented by: Sodium Chloride (Sodium Chloride Flush Syringe 10 Ml) 10 ml IV BID CLAUDIA Last Admin: 06/29/18 00:37 Dose: 10 ml Documented by: Sodium Chloride (Sodium Chloride Flush Syringe 10 Ml) 10 ml IV PRN PRN PRN Reason: LINE FLUSH medications reviewed/updated as required Review of Systems - Review of Systems All systems: negative Constitutional: fever, weakness Gastrointestinal: nausea, vomiting Exam - Constitutional Vital Signs: Temp Pulse Resp BP Pulse Ox 101.9 F H 88 18 139/69 96 06/29/18 05:38 06/29/18 05:38 06/29/18 05:38 06/29/18 05:38 06/29/18 05:38 General appearance: no acute distress, obese, other (ill appearing) - EENT Eyes: PERRL, EOM intact ENT: hearing intact - Respiratory Respiratory: bilateral: CTA - Cardiovascular Rhythm: regular - Gastrointestinal General gastrointestinal: Present: soft, non-tender, non-distended, normal bowel sounds, other (obese) - Neurologic Neurological: alert and oriented x3 - Labs CBC & Chem 7: 06/29/18 06:00 06/29/18 04:36 Lab Results: Laboratory Results - last 24 hr 06/28/18 06/28/18 06/28/18 13:38 13:38 13:44 WBC 15.5 H RBC 4.20 Hgb 12.6 Hct 36.3 MCV 87 MCH 30 MCHC 35 H RDW 14.5 Plt Count 188 Add Manual Diff Complete Total Counted 100 Seg Neuts % (Manual) 91.0 H Band Neutrophils % 3.0 Lymphocytes % (Manual) 4.0 L Reactive Lymphs % (Man) 0 Monocytes % (Manual) 2.0 Eosinophils % (Manual) 0 Basophils % (Manual) 0 Metamyelocytes % 0 Myelocytes % 0 Promyelocytes % 0 Blast Cells % 0 Nucleated RBC % Not Reportable Seg Neutrophils # Man 14.1 H Band Neutrophils # 0.5 Lymphocytes # (Manual) 0.6 L Abs React Lymphs (Man) 0.0 Monocytes # (Manual) 0.3 Eosinophils # (Manual) 0.0 Basophils # (Manual) 0.0 Metamyelocytes # 0.0 Myelocytes # 0.0 Promyelocytes # 0.0 Blast Cells # 0.0 WBC Morphology Not Reportable Hypersegmented Neuts Not Reportable Hyposegmented Neuts Not Reportable Hypogranular Neuts Not Reportable Smudge Cells Not Reportable Toxic Granulation Not Reportable Toxic Vacuolation Not Reportable Dohle Bodies Not Reportable Pelger-Huet Anomaly Not Reportable Allen Rods Not Reportable Platelet Estimate Consistent w auto Clumped Platelets Not Reportable Plt Clumps, EDTA Not Reportable Large Platelets Not Reportable Giant Platelets Not Reportable Platelet Satelliting Not Reportable Plt Morphology Comment Not Reportable RBC Morphology Normal Dimorphic RBCs Not Reportable Polychromasia Not Reportable Hypochromasia Not Reportable Poikilocytosis Not Reportable Anisocytosis Not Reportable Microcytosis Not Reportable Macrocytosis Not Reportable Spherocytes Not Reportable Pappenheimer Bodies Not Reportable Sickle Cells Not Reportable Target Cells Not Reportable Tear Drop Cells Not Reportable Ovalocytes Not Reportable Helmet Cells Not Reportable Rooney-Byers Bodies Not Reportable [place] Rings Not Reportable Karey Cells Not Reportable Bite Cells Not Reportable Crenated Cell Not Reportable Elliptocytes Not Reportable Acanthocytes (Spur) Not Reportable Rouleaux Not Reportable Hemoglobin C Crystals Not Reportable Schistocytes Not Reportable Malaria parasites Not Reportable Kirill Bodies Not Reportable Hem Pathologist Commnt No Sodium 138 Potassium 2.8 L* Chloride 95.8 L Carbon Dioxide 26 Anion Gap 19 BUN 19 H Creatinine 1.7 H Estimated GFR 38 BUN/Creatinine Ratio 11 Glucose 143 H Lactic Acid Calcium 9.2 Phosphorus Magnesium Total Bilirubin 1.30 H Direct Bilirubin 0.8 H Indirect Bilirubin 0.5 AST 44 H ALT 84 H Alkaline Phosphatase 109 Total Protein 7.2 Albumin 3.5 L Albumin/Globulin Ratio 0.9 Lipase 18 Urine Color [place] Urine Turbidity Slightly-cloudy Urine pH 5.0 Ur Specific [place] 1.016 Urine Protein 30 mg/dl Urine Glucose (UA) Neg Urine Ketones Neg Urine Blood Mod Urine Nitrite Neg Urine Bilirubin Neg Urine Urobilinogen 4.0 Ur Leukocyte Esterase Neg Urine WBC (Auto) 5.0 Urine RBC (Auto) 4.0 U Epithel Cells (Auto) 3.0 Urine Bacteria (Auto) 1+ Urine Mucus Few 06/28/18 06/29/18 06/29/18 20:51 00:28 04:36 WBC RBC Hgb Hct MCV MCH MCHC RDW Plt Count Add Manual Diff Total Counted Seg Neuts % (Manual) Band Neutrophils % Lymphocytes % (Manual) Reactive Lymphs % (Man) Monocytes % (Manual) Eosinophils % (Manual) Basophils % (Manual) Metamyelocytes % Myelocytes % Promyelocytes % Blast Cells % Nucleated RBC % Seg Neutrophils # Man Band Neutrophils # Lymphocytes # (Manual) Abs React Lymphs (Man) Monocytes # (Manual) Eosinophils # (Manual) Basophils # (Manual) Metamyelocytes # Myelocytes # Promyelocytes # Blast Cells # WBC Morphology Hypersegmented Neuts Hyposegmented Neuts Hypogranular Neuts Smudge Cells Toxic Granulation Toxic Vacuolation Dohle Bodies Pelger-Huet Anomaly Allen Rods Platelet Estimate Clumped Platelets Plt Clumps, EDTA Large Platelets Giant Platelets Platelet Satelliting Plt Morphology Comment RBC Morphology Dimorphic RBCs Polychromasia Hypochromasia Poikilocytosis Anisocytosis Microcytosis Macrocytosis Spherocytes Pappenheimer Bodies Sickle Cells Target Cells Tear Drop Cells Ovalocytes Helmet Cells Rooney-Byers Bodies [place] Rings [place] Cells Bite Cells Crenated Cell Elliptocytes Acanthocytes (Spur) Rouleaux Hemoglobin C Crystals Schistocytes Malaria parasites Kirill Bodies Hem Pathologist Commnt Sodium 140 Potassium 3.1 L Chloride 100.0 Carbon Dioxide 24 Anion Gap 19 BUN 10 Creatinine 1.1 Estimated GFR > 60 BUN/Creatinine Ratio 9 Glucose 113 H Lactic Acid 1.30 0.80 Calcium 8.5 Phosphorus 2.70 Magnesium 2.50 H Total Bilirubin Direct Bilirubin Indirect Bilirubin AST ALT Alkaline Phosphatase Total Protein Albumin Albumin/Globulin Ratio Lipase Urine Color Urine Turbidity Urine pH Ur Specific [place] Urine Protein Urine Glucose (UA) Urine Ketones Urine Blood Urine Nitrite Urine Bilirubin Urine Urobilinogen Ur Leukocyte Esterase Urine WBC (Auto) Urine RBC (Auto) U Epithel Cells (Auto) Urine Bacteria (Auto) Urine Mucus 06/29/18 06:00 WBC 16.7 H RBC 3.56 L Hgb 10.7 Hct 31.3 MCV 88 MCH 30 MCHC 34 RDW 14.6 Plt Count 198 Add Manual Diff Complete Total Counted 100 Seg Neuts % (Manual) 80.0 H Band Neutrophils % 3.0 Lymphocytes % (Manual) 12.0 L Reactive Lymphs % (Man) 0 Monocytes % (Manual) 5.0 Eosinophils % (Manual) 0 Basophils % (Manual) 0 Metamyelocytes % 0 Myelocytes % 0 Promyelocytes % 0 Blast Cells % 0 Nucleated RBC % Not Reportable Seg Neutrophils # Man 13.4 H Band Neutrophils # 0.5 Lymphocytes # (Manual) 2.0 Abs React Lymphs (Man) 0.0 Monocytes # (Manual) 0.8 Eosinophils # (Manual) 0.0 Basophils # (Manual) 0.0 Metamyelocytes # 0.0 Myelocytes # 0.0 Promyelocytes # 0.0 Blast Cells # 0.0 WBC Morphology Not Reportable Hypersegmented Neuts Not Reportable Hyposegmented Neuts Not Reportable Hypogranular Neuts Not Reportable Smudge Cells Not Reportable Toxic Granulation Not Reportable Toxic Vacuolation Not Reportable Dohle Bodies Not Reportable Pelger-Huet Anomaly Not Reportable Allen Rods Not Reportable Platelet Estimate Consistent w auto Clumped Platelets Not Reportable Plt Clumps, EDTA Not Reportable Large Platelets Not Reportable Giant Platelets Rare Platelet Satelliting Not Reportable Plt Morphology Comment Not Reportable RBC Morphology Normal Dimorphic RBCs Not Reportable Polychromasia Not Reportable Hypochromasia Not Reportable Poikilocytosis Not Reportable Anisocytosis Not Reportable Microcytosis Not Reportable Macrocytosis Not Reportable Spherocytes Not Reportable Pappenheimer Bodies Not Reportable Sickle Cells Not Reportable Target Cells Not Reportable Tear Drop Cells Not Reportable Ovalocytes Not Reportable Helmet Cells Not Reportable Rooney-Byers Bodies Not Reportable [place] Rings Not Reportable [place] Cells Not Reportable Bite Cells Not Reportable Crenated Cell Not Reportable Elliptocytes Not Reportable Acanthocytes (Spur) Not Reportable Rouleaux Not Reportable Hemoglobin C Crystals Not Reportable Schistocytes Not Reportable Malaria parasites Not Reportable Kirill Bodies Not Reportable Hem Pathologist Commnt No Sodium Potassium Chloride Carbon Dioxide Anion Gap BUN Creatinine Estimated GFR BUN/Creatinine Ratio Glucose Lactic Acid Calcium Phosphorus Magnesium Total Bilirubin Direct Bilirubin Indirect Bilirubin AST ALT Alkaline Phosphatase Total Protein Albumin Albumin/Globulin Ratio Lipase Urine Color Urine Turbidity Urine pH Ur Specific [place] Urine Protein Urine Glucose (UA) Urine Ketones Urine Blood Urine Nitrite Urine Bilirubin Urine Urobilinogen Ur Leukocyte Esterase Urine WBC (Auto) Urine RBC (Auto) U Epithel Cells (Auto) Urine Bacteria (Auto) Urine Mucus Assessment and Plan 1.elevated LFTs -plt and lipase WNL -T.shamika 1.30, AST 44, ALT 84, alk phos 109 -abd CT showed subtle low-density lesion in the right lobe of the liver (6.5x4.7cm) -etiology unclear-possibly 2/2 sepsis vs other -repeat CMP this am -abdominal U/S for further evaluation of liver -hepatitis panel -INR in am -continue to trend labs and supportive care -will follow 2.acute appendicitis -surgery following -appendectomy pending for today 3.SIRS 4.intractable N/V 5.ARF-improving
[2018-06-29] MEDS ORDERED: K-DUR PO ONE (10:00)
[2018-06-29 10:46] LABS: Alanine Aminotransferase 61 units/L (7-56); Albumin 2.8 g/dL (3.9-5); BUN/Creatinine Ratio 10; Blood Urea Nitrogen 9 mg/dL (7-17); Calcium 8.3 mg/dL (8.4-10.2); Hemolysis Index 7
[2018-06-29] MEDS: NACL 0.9% 1000 ML 1,000 ML IV SCH ×2 (13:08→19:50)
--- NOTE | 2018-06-29 13:51 | Progress Note ---
Assessment and Plan / Acute appendicitis cont IV antibiotic therapy, Bowel rest, CBC, CMP, IVF resuscitation therapy, Surgical team consulted in ED, serial abdominal exam. pLAN FOR SURGERY TODAY / SIRS (systemic inflammatory response syndrome) FROM APPENDICITIS CONT IV antibiotic therapy, follow Blood cultures, urinalysis was normal, / Intractable nausea and vomiting on Zofran prn, bowel rest, supportive care. / ARF (acute renal failure) with vasomotor nephropathy cont IVF resuscitation, monitor uop q shift, urine electrolytes, Nephrology consulted, / Elevated LFTs -abd CT showed subtle low-density lesion in the right lobe of the liver (6. 5x4.7cm) -etiology unclear-possibly 2/2 sepsis vs other -abdominal U/S ordered for further evaluation of liver -follow hepatitis panel -INR in am / Hypokalemia replete as needed / DVT prophylaxis SCD to BLE while in bed, Brief History; Patient is a 58 y/o female with PMH of HTN and obesity who presented to ED with persistent N/V, weakness, fever, and remote abd pain, Upon admission, abd CT showed acute appendicitis to which she was admitted, along with SIRS, ARF, and hypokalemia. Surgery is following with laparoscopic appendectomy pending for today. Subjective Date of service: 06/29/18 Interval history: patient seen and examined No acute event O/N plan for appendectomy today No n/V, family at bedside Objective - Exam Narrative Exam: General appearance: Present: mild distress, obese - EENT Eyes: Present: PERRL ENT: hearing intact, clear oral mucosa - Neck Neck: Present: supple, normal ROM - Respiratory Respiratory effort: normal Respiratory: bilateral: CTA - Cardiovascular Heart Sounds: Present: S1 & S2. Absent: rub, click - Extremities Extremities: pulses symmetrical, No edema Peripheral Pulses: within normal limits - Abdominal General gastrointestinal: Present: soft, non-tender, non-distended, normal bowel sounds Female genitourinary: Present: normal - Integumentary Integumentary: Present: clear, warm, dry - Musculoskeletal Musculoskeletal: gait normal, strength equal bilaterally - Psychiatric Psychiatric: appropriate mood/affect, intact judgment & insight - Neurologic Neurologic: CNII-XII intact, moves all extremities - Constitutional Vitals: Vital Signs - 12hr 06/29/18 06/29/18 05:38 11:49 Temperature 101.9 F H 101.6 F H Pulse Rate 88 84 Respiratory 18 18 Rate Blood Pressure 139/69 141/70 O2 Sat by Pulse 96 94 Oximetry - Labs CBC & Chem 7: 06/29/18 06:00 06/30/18 05:27 Labs: Abnormal lab results 06/28/18 06/28/18 06/29/18 Range/Units 13:38 13:38 04:36 WBC 15.5 H (4.5-11.0) K/mm3 RBC (3.65-5.03) M/mm3 MCHC 35 H (30-34) % Seg Neuts % (Manual) 91.0 H (40.0-70.0) % Lymphocytes % (Manual) 4.0 L (13.4-35.0) % Seg Neutrophils # Man 14.1 H (1.8-7.7) K/mm3 Lymphocytes # (Manual) 0.6 L (1.2-5.4) K/mm3 Potassium 2.8 L* 3.1 L (3.6-5.0) mmol/L Chloride 95.8 L (98-107) mmol/L BUN 19 H (7-17) mg/dL Creatinine 1.7 H (0.7-1.2) mg/dL Glucose 143 H 113 H (65-100) mg/dL Calcium (8.4-10.2) mg/dL Magnesium 2.50 H (1.7-2.3) mg/dL Total Bilirubin 1.30 H (0.1-1.2) mg/dL Direct Bilirubin 0.8 H (0-0.2) mg/dL AST 44 H (5-40) units/L ALT 84 H (7-56) units/L Total Protein (6.3-8.2) g/dL Albumin 3.5 L (3.9-5) g/dL 06/29/18 06/29/18 Range/Units 06:00 09:43 WBC 16.7 H (4.5-11.0) K/mm3 RBC 3.56 L (3.65-5.03) M/mm3 MCHC (30-34) % Seg Neuts % (Manual) 80.0 H (40.0-70.0) % Lymphocytes % (Manual) 12.0 L (13.4-35.0) % Seg Neutrophils # Man 13.4 H (1.8-7.7) K/mm3 Lymphocytes # (Manual) (1.2-5.4) K/mm3 Potassium 3.2 L (3.6-5.0) mmol/L Chloride (98-107) mmol/L BUN (7-17) mg/dL Creatinine (0.7-1.2) mg/dL Glucose 122 H (65-100) mg/dL Calcium 8.3 L (8.4-10.2) mg/dL Magnesium (1.7-2.3) mg/dL Total Bilirubin 1.40 H (0.1-1.2) mg/dL Direct Bilirubin (0-0.2) mg/dL AST (5-40) units/L ALT 61 H (7-56) units/L Total Protein 6.1 L (6.3-8.2) g/dL Albumin 2.8 L (3.9-5) g/dL
--- NOTE | 2018-06-29 14:31 | Ultrasound Report ---
Sonogram of abdomen: History: Elevated LFTs. Findings: There is very faint isoechoic to mildly hypoechoic circumscribed mass identified in the inferior aspect of the right lobe of the liver. No additional masses are seen. No intrahepatic duct dilatation. There is thick bile or sludge noted within the gallbladder with suspicion of tiny calculi. Gallbladder wall thickness 2.6 mm. Common bile duct diameter 2.9 mm. Normal pancreas. Normal spleen measures 10.4 cm. Right kidney 13.6 x 5.4 x 5.9 cm. Cortical thickness 1.5 cm. Left kidney 10.8 x 5.2 x 5.5 cm. Cortical thickness is 1.8 cm Impression: Suspected mass the liver. Further evaluation recommended. Suspected tiny calculi/thick bile or sludge within the gallbladder.
[2018-06-29] MEDS ORDERED: XYLOCAINE MPF 2% ONE (15:32)
[2018-06-29] MEDS ORDERED: ZOFRAN ONE (15:32)
[2018-06-29] MEDS ORDERED: DIPRIVAN 10 MG/ML IV ONE (15:32)
[2018-06-29] MEDS ORDERED: TORADOL ONE (15:32)
[2018-06-29] MEDS ORDERED: SUBLIMAZE ONE ×2 (15:32→17:42)
[2018-06-29] MEDS ORDERED: DECADRON ONE (15:32)
[2018-06-29] MEDS ORDERED: ZEMURON IV ONE (15:32)
[2018-06-29] MEDS ORDERED: XYLOCAINE 1% 20 mL ONE (15:46)
[2018-06-29] MEDS ORDERED: MARCAINE 0.25% INFILTRATI ONE ×2 (15:46→16:45)
--- NOTE | 2018-06-29 16:10 | Anesthesia Day of Surgery ---
Anesthesia Day of Surgery - Day of Surgery Patient Examined: Yes Patient H&P Reviewed: Yes Patient is NPO: Yes Beta Blockers: No Cardiac Clearance: No Pulmonary Clearance: No Carlos's Test: N/A
--- NOTE | 2018-06-29 16:12 | Anesthesia Consultation ---
Anesthesia Consult and Med Hx Date of service: 06/29/18 - Airway Anesthetic Teeth Evaluation: Good ROM Head & Neck: Adequate Mental/Hyoid Distance: Adequate Mallampati Class: Class II Intubation Access Assessment: Probably Good - Pulmonary Exam CTA: Yes - Cardiac Exam Cardiac Exam: RRR - Pre-Operative Health Status ASA Pre-Surgery Classification: ASA2 Proposed Anesthetic Plan: General - Pulmonary Hx Smoking: No Hx Asthma: No Hx Respiratory Symptoms: No SOB: No Hx Sleep Apnea: No - Cardiovascular System Hx Hypertension: Yes (norvasc, lisinopril ) Hx Peripheral Vascular Disease: No - Central Nervous System Hx Psychiatric Problems: No - Other Systems Hx Cancer: No
[2018-06-29] MEDS ORDERED: SUBLIMAZE IV PRN (16:28)
[2018-06-29] MEDS ORDERED: TORADOL IV PRN (16:28)
[2018-06-29] MEDS ORDERED: DILAUDID IV PRN (16:28)
[2018-06-29] MEDS ORDERED: NACL 0.9% IR ONE (16:45)
[2018-06-29] MEDS ORDERED: XYLOCAINE 1% 20 mL INFILTRATI ONE (16:45)
[2018-06-29] MEDS ORDERED: WATER FOR IRRIG STERILE IR ONE (16:46)
[2018-06-29] MEDS ORDERED: ROBINUL ONE (17:41)
[2018-06-29] MEDS ORDERED: BLOXIVERZ ONE (17:41)
--- NOTE | 2018-06-29 17:46 | Post Operative Note ---
Date of procedure: 06/29/18 (dictation:[id number]) Pre-op diagnosis: acute appendicitis Post-op diagnosis: same Findings: marked thickened appendix adhered to surrounding tissue Procedure: lap appy IVF 500cc Anesthesia: GETA Surgeon: KHUSHI HUTCHINSON Estimated blood loss: minimal Pathology: list (appendix) Specimen disposition: to lab Condition: stable Disposition: PACU
[2018-06-30] MEDS: NACL 0.9% 1000 ML 1,000 ML IV SCH (04:27)
[2018-06-30] MEDS: MAXIPIME/NS 2 GM/100 ML 2 GM/100 ML BAG IV SCH (05:42)
[2018-06-30] MEDS: FLAGYL 500 MG/100 ML 500 MG/100 ML BAG IV SCH (05:51)
[2018-06-30 06:12] LABS: INR 1.11 (0.87-1.13)
[2018-06-30 06:24] LABS: BUN/Creatinine Ratio 16; Blood Urea Nitrogen 13 mg/dL (7-17); Hemolysis Index 0
--- NOTE | 2018-06-30 08:30 | Progress Note ---
Assessment and Plan - Patient Problems (1) Acute appendicitis Current Visit: Yes Status: Acute Qualifiers: Acute appendicitis type: unspecified acute appendicitis type Qualified Code(s): K35.80 - Unspecified acute appendicitis Plan to address problem: Pt stable. s/p Lap appy - 06/29/18 - POD#1. Looks great. Ok to d/c home. no Abx needed. f/u 2 weeks. Diet as tolerated. May shower tomorrow. Pat dry wounds. Please call with questions. time=10min Subjective Date of service: 06/30/18 Patient Reports: Positive: no new complaints, feels better, tolerating liquids well. Negative: nausea, vomiting Objective Vital Signs - 12hr 06/29/18 06/30/18 22:11 04:52 Temperature 98.2 F 98.1 F Pulse Rate 75 75 Respiratory 20 18 Rate Blood Pressure 131/72 126/78 O2 Sat by Pulse 97 97 Oximetry - General physical appearance no distress, no pain, other (looks much better) - Eyes normal occular movement - Respiratory normal expansion, normal respiratory effort - Abdomen soft, not tender, not distended, not guarding, not rigid, surgical scars (C/D/I - no bruising) - Integumentary no rash, no growths, no abnormal pigmentation - Psychiatric oriented to time, oriented to person, oriented to place, speech is normal, memory intact - Labs 06/29/18 06:00 06/30/18 05:27 Diabetes panel 06/29/18 06/30/18 Range/Units 09:43 05:27 Sodium 142 141 (137-145) mmol/L Potassium 3.2 L 3.7 (3.6-5.0) mmol/L Chloride 103.1 105.1 (98-107) mmol/L Carbon Dioxide 26 23 (22-30) mmol/L BUN 9 13 (7-17) mg/dL Creatinine 0.9 0.8 (0.7-1.2) mg/dL Glucose 122 H 130 H (65-100) mg/dL Calcium 8.3 L 8.0 L (8.4-10.2) mg/dL AST 31 (5-40) units/L ALT 61 H (7-56) units/L Alkaline Phosphatase 94 (35-129) units/L Total Protein 6.1 L (6.3-8.2) g/dL Albumin 2.8 L (3.9-5) g/dL Calcium panel 06/29/18 06/30/18 Range/Units 09:43 05:27 Calcium 8.3 L 8.0 L (8.4-10.2) mg/dL Albumin 2.8 L (3.9-5) g/dL Pituitary panel 06/29/18 06/30/18 Range/Units 09:43 05:27 Sodium 142 141 (137-145) mmol/L Potassium 3.2 L 3.7 (3.6-5.0) mmol/L Chloride 103.1 105.1 (98-107) mmol/L Carbon Dioxide 26 23 (22-30) mmol/L BUN 9 13 (7-17) mg/dL Creatinine 0.9 0.8 (0.7-1.2) mg/dL Glucose 122 H 130 H (65-100) mg/dL Calcium 8.3 L 8.0 L (8.4-10.2) mg/dL Adrenal panel 06/29/18 06/30/18 Range/Units 09:43 05:27 Sodium 142 141 (137-145) mmol/L Potassium 3.2 L 3.7 (3.6-5.0) mmol/L Chloride 103.1 105.1 (98-107) mmol/L Carbon Dioxide 26 23 (22-30) mmol/L BUN 9 13 (7-17) mg/dL Creatinine 0.9 0.8 (0.7-1.2) mg/dL Glucose 122 H 130 H (65-100) mg/dL Calcium 8.3 L 8.0 L (8.4-10.2) mg/dL Total Bilirubin 1.40 H (0.1-1.2) mg/dL AST 31 (5-40) units/L ALT 61 H (7-56) units/L Alkaline Phosphatase 94 (35-129) units/L Total Protein 6.1 L (6.3-8.2) g/dL Albumin 2.8 L (3.9-5) g/dL
--- NOTE | 2018-06-30 08:59 | Operative Report ---
PREOPERATIVE DIAGNOSIS: Acute appendicitis. POSTOPERATIVE DIAGNOSIS: Acute appendicitis. PROCEDURE: Laparoscopic appendectomy. ATTENDING PHYSICIAN: Chapo Wynne MD ANESTHESIA: General. ESTIMATED BLOOD LOSS: Minimal. FLUIDS: 500 mL. FINDINGS: Markedly inflamed and thickened appendix that was adhered to the surrounding tissue. Adhesions were already seen between the cecum and the lateral wall. There was no evidence of any perforation. No purulent fluid was identified. SPECIMEN: Appendix. DRAINS: None. COMPLICATIONS: None. DISPOSITION: Stable, transferred to Recovery Room. INDICATIONS: This is a 58-year-old female who presented with a 3-day history of nausea, vomiting, ill feeling, and initially some fevers and chills. CT scan evaluation suggested acute appendicitis; however, the patient had no pain in the right lower quadrant. Upon reevaluation, the patient continued to have no pain; however, her symptoms persisted. We discussed the options of going to the operating room to evaluate and possibly remove the appendix. Procedure, risks and benefits were explained to the patient. Risks included but were not limited to infection, bleeding, pain, injury to surrounding structures, possible need for further procedures in the future. The patient understood and consented. DESCRIPTION OF PROCEDURE: The patient was brought to the operating room and placed on the table in supine position. After adequate general anesthesia was established, the patient was prepped and draped in the usual sterile fashion. Timeout was called. Antibiotics had already been given. SCDs were in place. I began by facing a Veress needle in the left upper quadrant. I was able to insufflate on the first attempt. A 12 mm port was placed in the left lower quadrant. Using the Optiview technique, I entered the peritoneal cavity safely. I examined the area where the Veress needle was inserted. There was no injury to the underlying structures. Veress needle was removed. We placed a 5 mm port at the umbilicus and one in the suprapubic region. We carefully evaluated the right lower quadrant, as mentioned previously, there were extensive adhesions. It was very difficult to identify the appendix as it was markedly thickened. It had the same size of the small bowel. After multiple evaluations and confirming where the ileocecal valve was, where the ileocecal fat pad was, we were able to identify the appendix and dissected out from the surrounding tissue. Extra time was required to dissect out a very thickened mesoappendix that essentially was adhered to the appendix and the surrounding tissue, however, we were able to dissect it out. We divided with the LigaSure device, 45-mm stapler using a blue load was used to come across the base of the appendix and because it was so thickened take part of the cecum to get a better area for ligation and division. We had a very clean staple line. There was minimal bleeding with a little bit of pressure that stopped. As a precaution, I laid Surgicel in that area. The specimen was placed in the EndoCatch bag and left inside. We saw no other abnormalities. Everything else looked good. Please note, I did have to mobilize the cecum from the lateral wall with the LigaSure device in order to get around the appendix. We removed the EndoCatch bag from the left lower quadrant port site using the Waqar-Miguel Angel fascial closure device, I closed with an 0 Vicryl stitch. The other ports were removed under direct vision. We desufflated the abdomen. Additional local was injected into all the incisions. 4-0 Monocryl subcuticular stitches were then placed to close the skin. There were some skin bleeders that were taken care of with electrocautery. Skin was cleaned and dried. Dermabond was placed. The patient tolerated the procedure well. There were no complications. All counts were correct at the end of the case. JOB# [id number] SHANNA/EBONIE
[2018-06-30 09:19] LABS: Hepatitis B Surface Antigen Non-Reactive (Negative); Hepatitis C Virus Antibody Non-Reactive (NonReactive)
--- NOTE | 2018-06-30 09:32 | Progress Note ---
Assessment and Plan 1. Acute kidney injury: Vasomotor BECKY in the setting of volume depletion. CT abdomen was negative for hydro. Renal function has improved. Avoid nephrotoxic agents. Meds dosage based on GFR. 2. FEN: Hypokalemia, K level is better. Monitor lytes. 3. Acute Appendicitis: S/p appendectomy. Followed by Gen. surgery. 4. SIRS. 5. Intractable N/V: Improved. 6. Elevated LFTs. Subjective Date of service: 06/30/18 Interval history: Patient is feeling better. No Nor V. at the bedside. Objective - Vital Signs Vital signs: Vital Signs - 12hr 06/29/18 06/30/18 22:11 04:52 Temperature 98.2 F 98.1 F Pulse Rate 75 75 Respiratory 20 18 Rate Blood Pressure 131/72 126/78 O2 Sat by Pulse 97 97 Oximetry - General Appearance General appearance: well-developed, well-nourished, appears stated age, other (no distress) EENT: ATNC, PERRL, mucous membranes moist, hearing intact, vision intact Neck: supple Respiratory: Present: Clear to Ascultation Cardiology: regular, S1S2, no murmurs Gastrointestinal: normoactive bowel sounds, no tenderness, no distended Integumentary: no rash, warm and dry Neurologic: no focal deficit, no asterixis, alert and oriented x3 Musculoskeletal: other (no edema) Psychiatric: cooperative - Lab 06/29/18 06:00 06/30/18 05:27 Most recent lab results Calcium 8.0 mg/dL (8.4-10.2) L 06/30/18 05:27 Phosphorus 2.70 mg/dL (2.5-4.5) 06/29/18 04:36 Magnesium 2.50 mg/dL (1.7-2.3) H 06/29/18 04:36 Medications & Allergies - Medications Allergies/Adverse Reactions: Allergies No Known Allergies Allergy (Verified 06/26/18 05:04) Home Medications: Home Medications Medication Instructions Recorded Confirmed Last Taken Type Amlodipine Besylate 10 mg PO DAILY 06/29/18 06/29/18 Unknown History HYDROcodone/APAP 5-325 [[place] 1 each PO Q6HR PRN #10 tablet 06/30/18 Unknown Rx 5-325 mg TAB] Active Medications: Generic Name Dose Route Start Last Admin Trade Name Freq PRN Reason Stop Dose Admin Acetaminophen 650 mg 06/29/18 06:04 06/29/18 12:23 Tylenol MI 650 mg Q6H PRN Administration Pain, Mild (1-3) Acetaminophen/Hydrocodone Bitart 1 each 06/28/18 19:30 [place] 5/325 PO Q6HR PRN Pain, Moderate (4-6) Albuterol 2.5 mg 06/28/18 18:00 Proventil IH Q4HRT PRN Shortness Of Breath Cefepime HCl 2 gm in 100 mls @ 200 mls/hr 06/28/18 22:00 06/30/18 05:42 Maxipime/Ns 2 Gm/100 Ml IV 200 mls/hr Q8HR CLAUDIA Administration Protocol Metronidazole 500 mg in 100 mls @ 100 mls/hr 06/28/18 22:00 06/30/18 05:51 Flagyl 500 Mg/100 Ml IV 100 mls/hr Q8HR CLAUDIA Administration Protocol Sodium Chloride 1,000 mls @ 125 mls/hr 06/28/18 20:00 06/30/18 04:27 Nacl 0.9% 1000 Ml IV 125 mls/hr DIRECT CLAUDIA Administration Morphine Sulfate 2 mg 06/28/18 18:00 Morphine IV Q4H PRN Pain, Moderate (4-6) Ondansetron HCl 4 mg 06/29/18 05:07 06/29/18 05:21 Zofran IV 4 mg Q6HR PRN Administration Nausea And Vomiting Promethazine HCl 25 mg 06/29/18 07:40 06/29/18 08:18 Phenergan [place] 25 mg Q6H PRN Administration Nausea And Vomiting Sodium Chloride 10 ml 06/28/18 22:00 06/29/18 22:30 Sodium Chloride Flush Syringe 10 Ml IV 10 ml BID CLAUDIA Administration Sodium Chloride 10 ml 06/28/18 18:00 Sodium Chloride Flush Syringe 10 Ml IV PRN PRN LINE FLUSH
[2018-06-30] MEDS ORDERED: K-DUR PO ONE (10:00)
--- NOTE | 2018-06-30 10:41 | Gastroenterology Progress Note ---
<PEDRITO GONZALEZ - Last Filed: 06/30/18 10:36> Assessment and Plan 1.elevated LFTs -plt and lipase WNL -INR 1.11 -T.shamika 1.40, AST 31, ALT 61, alk phos 94 -abd CT showed subtle low-density lesion in the right lobe of the liver (6.5x4 .7cm) -abd U/S yesterday with findings supected for a liver mass with tiny caluli/thick bile or sludge within gallbladder -will order MR today for further evaluation of liver mass -continue to trend labs and supportive care -will follow 2.acute appendicitis -surgery following -s/p appendectomy 3.SIRS 4.intractable N/V-improved 5.ARF-improving Subjective Date of service: 06/30/18 Principal diagnosis: elevated LFTs Interval history: Patient resting in bed this am w/o acute distress. Reports feeling better with N/V resolved s/p appendectomy yesterday. Admit to abd soreness but no pain. Objective - Constitutional Vitals: Temp Pulse Resp BP Pulse Ox 98.1 F 75 18 126/78 97 06/30/18 04:52 06/30/18 04:52 06/30/18 04:52 06/30/18 04:52 06/30/18 04:52 General appearance: no acute distress, obese - Respiratory Respiratory: bilateral: CTA - Cardiovascular Rhythm: regular - Gastrointestinal General gastrointestinal: Present: soft, tender (slight TTP), non-distended, no rmal bowel sounds - Neurologic Neurological: alert and oriented x3 - Labs CBC & Chem 7: 06/29/18 06:00 06/30/18 05:27 Labs: Laboratory Results - last 24 hr 06/29/18 06/30/18 06/30/18 09:43 05:27 05:27 PT 15.0 H INR 1.11 Sodium 142 Potassium 3.2 L Chloride 103.1 Carbon Dioxide 26 Anion Gap 16 BUN 9 Creatinine 0.9 Estimated GFR > 60 BUN/Creatinine Ratio 10 Glucose 122 H Calcium 8.3 L Total Bilirubin 1.40 H AST 31 ALT 61 H Alkaline Phosphatase 94 Total Protein 6.1 L Albumin 2.8 L Albumin/Globulin Ratio 0.8 Hepatitis A IgM Ab Non-reactive Hep Bs Antigen Non-reactive Hep B Core IgM Ab Non-reactive Hepatitis C Antibody Non-reactive 06/30/18 05:27 PT INR Sodium 141 Potassium 3.7 Chloride 105.1 Carbon Dioxide 23 Anion Gap 17 BUN 13 Creatinine 0.8 Estimated GFR > 60 BUN/Creatinine Ratio 16 Glucose 130 H Calcium 8.0 L Total Bilirubin AST ALT Alkaline Phosphatase Total Protein Albumin Albumin/Globulin Ratio Hepatitis A IgM Ab Hep Bs Antigen Hep B Core IgM Ab Hepatitis C Antibody <LUIS LUNDBERG R - Last Filed: 06/30/18 15:08> Assessment and Plan Pt refused MRI or other liver eval, and will discuss at home with family and then f/u as outpatient. Objective - Constitutional Vitals: Temp Pulse Resp BP Pulse Ox 98.1 F 83 18 155/78 98 06/30/18 04:52 06/30/18 11:22 06/30/18 11:22 06/30/18 11:23 06/30/18 11:22 - Labs CBC & Chem 7: 06/29/18 06:00 06/30/18 05:27 Labs: Laboratory Results - last 24 hr 06/30/18 06/30/18 06/30/18 05:27 05:27 05:27 PT 15.0 H INR 1.11 Sodium 141 Potassium 3.7 Chloride 105.1 Carbon Dioxide 23 Anion Gap 17 BUN 13 Creatinine 0.8 Estimated GFR > 60 BUN/Creatinine Ratio 16 Glucose 130 H Calcium 8.0 L Hepatitis A IgM Ab Non-reactive Hep Bs Antigen Non-reactive Hep B Core IgM Ab Non-reactive Hepatitis C Antibody Non-reactive
[2018-06-30] MEDS ORDERED: NON-FORMULARY (Amlodipine Besylate 10 MG) PO SCH (10:45)
[2018-06-30] MEDS ORDERED: NORVASC PO SCH (11:00)
[2018-06-30 11:28] VITALS: BP 155/78
[2018-06-30] MEDS: SODIUM CHLORIDE FLUSH SYRINGE 10 ML IV SCH (11:28)
--- NOTE | 2018-06-30 12:02 | Discharge Summary ---
Providers - Providers Date of Admission: 06/28/18 18:00 Date of discharge: 06/30/18 Attending physician: ERIKA DEAN 06/28/18 17:43 Consult to Physician [CONS] Routine Comment: Consulting Provider: KHUSHI HUTCHINSON Physician Instructions: Reason For Exam: CT findings of acute appendicitis 06/28/18 19:30 Consult to Physician [CONS] Routine Comment: Consulting Provider: MARK KO Physician Instructions: Reason For Exam: elevated lft's 06/28/18 19:31 Consult to Physician [CONS] Routine Comment: Consulting Provider: JAKOB NAVARRO Physician Instructions: Reason For Exam: ARF, Hypokalemia [facility] Condition: Fair Pertinent studies: CT abdomen/pelvis US abdomen/pelvis Hospital course: 58 YO Female with Obesity, HTN presents to ED for evaluation of nausea, and multiple episodes of vomiting over the past 3 days. Patient was seen and evaluated in the ED at [facility] and found to have new evidence on CT Abdomen/Pelvis which is consistent with Acute Appendicitis. Pt also found to have evidence of SIRS and Acute Renal Failure. Patient was initiated on IV antibiotic therapy and admitted to Med/Surgical Floor for further evaluation and management. Discharge diagnosis and management: / Acute appendicitis Placed on IV antibiotic therapy, Bowel rest, IVF resuscitation therapy, serial abdominal exam. Surgical team consulted in ED, s/p laparoscopic appendectomy tolerating diet, GS cleared her for discharge / SIRS (systemic inflammatory response syndrome) FROM APPENDICITIS, does not have sepsis Treated with IV antibiotic therapy, negative Blood cultures, urinalysis was normal, / Intractable nausea and vomiting Treated with Zofran prn, bowel rest, supportive care. / ARF (acute renal failure) with vasomotor nephropathy Improved with IVF resuscitation, monitor uop q shift, Nephrology consulted, Renal function stable on discharge / Elevated LFTs -abd CT showed subtle low-density lesion in the right lobe of the liver (6.5x4.7cm) -etiology unclear-possibly 2/2 sepsis vs mass -abdominal U/S ordered showed liver mass -negative hepatitis panel -Recommended MRI to further characterize liver mass but patient denied and wanted to followup outpt / Hypokalemia repleted as needed, resolved Likely from Vomiting with GI loss / DVT prophylaxis SCD to BLE while in bed, Physical exam General appearance: Present: mild distress, obese - EENT Eyes: Present: PERRL ENT: hearing intact, clear oral mucosa - Neck Neck: Present: supple, normal ROM - Respiratory Respiratory effort: normal Respiratory: bilateral: CTA - Cardiovascular Heart Sounds: Present: S1 & S2. Absent: rub, click - Extremities Extremities: pulses symmetrical, No edema Peripheral Pulses: within normal limits - Abdominal General gastrointestinal: Present: soft, non-tender, non-distended, normal bowel sounds Female genitourinary: Present: normal - Integumentary Integumentary: Present: clear, warm, dry - Musculoskeletal Musculoskeletal: gait normal, strength equal bilaterally - Psychiatric Psychiatric: appropriate mood/affect, intact judgment & insight - Neurologic Neurologic: CNII-XII intact, moves all extremities Disposition: - TO HOME OR SELFCARE Time spent for discharge: 34 minutes Core Measure Documentation - Palliative Care Palliative Care/ Comfort Measures: Not Applicable - Core Measures Any of the following diagnoses?: none Exam - Constitutional Vitals: Temp Pulse Resp BP Pulse Ox 98.1 F 75 18 155/78 97 06/30/18 04:52 06/30/18 04:52 06/30/18 04:52 06/30/18 11:23 06/30/18 04:52 Plan Activity: advance as tolerated Weight Bearing Status: Non-Weight Bearing Diet: low fat, low salt Additional Instructions: MRI abdomen with contrast outpt Follow up with: LUIS LUNDBERG MD [Staff Physician] - 7 Days KHUSHI HUTCHINSON MD [Staff Physician] - 7 Days MISAEL SIEGEL MD [Primary Care Provider] - 3-5 Days Forms: Work/School Release Form Prescriptions: HYDROcodone/APAP 5-325 [[place] 5-325 mg TAB] 1 each PO Q6HR PRN #10 tablet PRN Reason: Pain
== END 2018-06-30 14:15 | disposition home or self-care (01) | DRG 341 ==
LOC: ED 12:36 → 3A 18:00
PROVIDERS: ADMIT Internal Medicine; ATTEND Internal Medicine
PROC: 0DTJ4ZZ Resection of Appendix, Percutaneous Endoscopic Approach (ICD-10-PCS; principal; 2018-06-29)
DX: K35.80 Unspecified acute appendicitis (principal); N17.0 Acute kidney failure with tubular necrosis; Z68.41 Body mass index [BMI] 40.0-44.9, adult; N39.0 Urinary tract infection, site not specified; R65.10 Systemic inflammatory response syndrome (SIRS) of non-infectious origin without acute organ dysfunction; E87.6 Hypokalemia; E66.9 Obesity, unspecified; K66.0 Peritoneal adhesions (postprocedural) (postinfection); I10 Essential (primary) hypertension; R16.0 Hepatomegaly, not elsewhere classified; E86.0 Dehydration; Z98.51 Tubal ligation status; Z82.49 Family history of ischemic heart disease and other diseases of the circulatory system
CPT/HCPCS: 36415; 74176; 76700; 80048; 80053; 80074; 80076; 81001; 82140; 83690; 83735; 84100; 85007; 85025; 85610; 87040; 87086; 88304; 93005; 93010; 96374; 99285; G0378; J0692; J1100; J1170; J1885; J2405; J2543; J2704; J2710; J2765; J3010; J3480; J7030; Q0162

== ENCOUNTER 2018-07-27 11:03 | Outpatient (CLI) | payer BC ==
[2018-07-27 11:27] LABS: Basophils % (Auto) 0.6 % (0.0-1.8); Eosinophils # (Auto) 0.1 K/mm3 (0.0-0.4); Eosinophils % (Auto) 2.1 % (0.0-4.3); Hematocrit 33.3 % (30.3-42.9); Hemoglobin 11.6 gm/dl (10.1-14.3); Lymphocytes # (Auto) 2.4 K/mm3 (1.2-5.4); Lymphocytes % (Auto) 43.4 % (13.4-35.0); Mean Corpuscular HGB Conc 35 % (30-34); Mean Corpuscular Volume 88 fl (79-97); Monocytes # (Auto) 0.4 K/mm3 (0.0-0.8); Monocytes % (Auto) 6.7 % (0.0-7.3); Platelet Count 204 K/mm3 (140-440); Red Blood Count 3.77 M/mm3 (3.65-5.03); Red Cell Distribution Width 15.3 % (13.2-15.2)
[2018-07-27 11:52] LABS: Alanine Aminotransferase 23 units/L (7-56); Albumin 4.2 g/dL (3.9-5); BUN/Creatinine Ratio 21; Blood Urea Nitrogen 17 mg/dL (7-17); Calcium 9.3 mg/dL (8.4-10.2); Hemolysis Index 2
== END 2018-07-27 11:04 | disposition home or self-care (01) ==
LOC: LAB 11:03
PROVIDERS: ATTEND Nurse Practitioner
DX: R93.3 Abnormal findings on diagnostic imaging of other parts of digestive tract (principal); R74.8 Abnormal levels of other serum enzymes; R16.0 Hepatomegaly, not elsewhere classified; I10 Essential (primary) hypertension
CPT/HCPCS: 36415; 80053; 85025

== ENCOUNTER 2018-07-28 09:29 | Outpatient (CLI) | payer BC | END 2018-07-28 09:30 | disposition home or self-care (01) | LOC: LAB 09:29 | PROVIDERS: ATTEND Nurse Practitioner | DX: R74.8 Abnormal levels of other serum enzymes (principal); R16.0 Hepatomegaly, not elsewhere classified; R93.3 Abnormal findings on diagnostic imaging of other parts of digestive tract; I10 Essential (primary) hypertension | CPT/HCPCS: 36415; 82106 ==

== ENCOUNTER 2018-07-31 09:28 | Outpatient (CLI) | payer BC ==
--- NOTE | 2018-07-31 18:36 | Magnetic Resonance Report ---
PROCEDURE: MR ABDOMEN WO/W CON TECHNIQUE: MRI was performed of the abdomen using the following pulse sequences: Axial: T2 FIESTA, dual echo,, dynamic gadolinium-enhanced LAVA Coronal: 2-D FIESTA, T2 SSFSE and gadolinium-enhanced LAVA HISTORY: ABNORMAL CT SCAN, GASTROINTESTINAL, ELEVATED LIVER ENZYMES COMPARISONS: CT of the abdomen and pelvis from 06/28/2018 FINDINGS: The lung bases are clear. The low-attenuation area demonstrated on the comparison CT is not demonstrated on the MRI. The liver vessels pass normally through this area. There is slight heterogeneity but no mass. The The gallbladder, pancreas, spleen, adrenal glands appear normal. There is no 9 mm cyst in the lower pole of the right kidney. Left kidney appears normal. The stomach appears grossly within normal limits. There are no abnormally dilated loops of bowel or acute inflammatory changes. The abdominal aorta has a normal diameter. The bones and subcutaneous soft tissues are unremarkable for age. IMPRESSION: 1. There is some heterogeneity corresponding to the low-attenuation area demonstrated on CT without d iscrete mass. The hepatic vessels course normally through this area. This may represent atypical foca l fatty infiltration. Consider further evaluation with ultrasound. 2. Otherwise, normal abdominal MRI This document is electronically signed by Veronica Altman MD., July 31 2018 08:27:30 PM ET
== END 2018-07-31 09:29 | disposition home or self-care (01) ==
LOC: MRI 09:28
PROVIDERS: ATTEND Nurse Practitioner
DX: R93.3 Abnormal findings on diagnostic imaging of other parts of digestive tract (principal); R74.8 Abnormal levels of other serum enzymes; R16.0 Hepatomegaly, not elsewhere classified; I10 Essential (primary) hypertension
CPT/HCPCS: 74183; A9577

== ENCOUNTER 2020-11-04 08:06 | Day surgery (SDC) | payer BC ==
[~2020-11-04 08:06] MED LIST: SODIUM CHLORIDE 0.9% 1000 ML 1,000 ML IV SCH
--- NOTE | 2020-11-04 08:51 | Anesthesia Day of Surgery ---
Anesthesia Day of Surgery - Day of Surgery Patient Examined: Yes Patient H&P Reviewed: Yes Patient is NPO: Yes Beta Blockers: Yes Cardiac Clearance: Yes Pulmonary Clearance: Yes
--- NOTE | 2020-11-04 08:51 | Anesthesia Consultation ---
Anesthesia Consult and Med Hx Date of service: 11/04/20 - Airway Anesthetic Teeth Evaluation: Good ROM Head & Neck: Adequate Mental/Hyoid Distance: Adequate Mallampati Class: Class II Intubation Access Assessment: Good - Pulmonary Exam CTA: Yes - Cardiac Exam Cardiac Exam: No Murmur - Pre-Operative Health Status ASA Pre-Surgery Classification: ASA2 Proposed Anesthetic Plan: MAC - Pulmonary Hx Smoking: No Hx Asthma: No Hx Respiratory Symptoms: No SOB: No Hx Sleep Apnea: No - Cardiovascular System Hx Hypertension: Yes (norvasc, lisinopril ) Hx Peripheral Vascular Disease: No - Central Nervous System Hx Psychiatric Problems: No - Other Systems Hx Cancer: No
[2020-11-04] MEDS ORDERED: propofoL 200 MG/20 ML VIAL IV ONE ×2 (08:53→09:05)
[2020-11-04] MEDS ORDERED: LIDOCAINE MPF (2%) 20 MG/1 ML VIAL 5 ML ONE (08:53)
--- NOTE | 2020-11-04 09:34 | Short Stay Summary ---
Short Stay Documentation Date of service: 11/04/20 Narrative H&P: The presents for her first screening colonoscopy, average risk profile. - History Past Medical History: hypertension Past Surgical History: appendectomy, Other (tubal ligation) Social history: no significant social history - Allergies and Medications Current Medications: Allergies No Known Allergies Allergy (Verified 06/26/18 05:04) Home Medications Medication Instructions Recorded Confirmed Last Taken Type HYDROcodone/APAP 5-325 [[place] 1 each PO Q6HR PRN #10 tablet 06/30/18 Unknown Rx 5-325 mg TAB] Losartan/Hydrochlorothiazide 10/28/20 Unknown History [Losartan-Hctz 100-25 mg Tab] Active Medications Sodium Chloride (Nacl 0.9% 1000 Ml) 1,000 mls @ 50 mls/hr IV DIRECT CLAUDIA - Physical exam General appearance: no acute distress, well-nourished Integumentary: no rash, no growths, no abnormal pigmentation HEENT: Atraumatic, PERRLA, EOMI, Mucous membr. moist/pink Lungs: Clear to auscultation, Normal air movement Breasts: deferred Heart: Regular rate, Normal S1, Normal S2, No murmurs Gastrointestinal: normoactive bowel sounds, no tenderness, no distended, no masses, no guarding, no organomegaly, obese Female Genitourinary: deferred Rectal Exam: normal exam-external/orifice, no mass Extremities: no ischemia, pulses intact, pulses symmetrical, No edema, normal temperature, normal color, Full ROM Neurological: Normal gait, Normal speech, Strength at 5/5 X4 ext, Normal tone, Sensation intact, Cranial nerves 3-12 NL - Brief post op/procedure progress note Date of procedure: 11/04/20 Procedure: see dictation Estimated blood loss: none Pathology: list (ascending colon polyp) Specimen disposition: to lab Condition: stable - Disposition Condition at discharge: Good Disposition: 01 HOME / SELF CARE / HOMELESS - Discharge Diagnoses (1) Colon cancer screening Status: Acute Short Stay Discharge Plan Activity: other (no driving for 24 hours.) Weight Bearing Status: Full Weight Bearing Diet: regular Follow up with: CHAVEZ ALMAGUER MD [Primary Care Provider] - 7 Days
--- NOTE | 2020-11-04 09:35 | Operative Report ---
Operative Report Operative Report: Date of procedure: 11/04/2020 Preprocedure diagnosis: Colon cancer screening, average risk profile. No prior studies. Post procedure diagnosis: 5 mm ascending colon polyp. Procedure: Colonoscopy to the cecum with cold snare polypectomy. Endoscopist: Dr. Levin Anesthesia: Monitored anesthesia care per anesthesia department Estimated blood loss: 0 Medications: Monitored anesthesia care. See separate report by anesthesia for details. After careful discussion of the nature and purpose of the procedure as well as details of the technique risks benefits and alternatives the patient gave consent. Please see recent history and physical from the office. The patient was placed in the left lateral decubitus position and medicated per anesthesia. A rectal exam was performed sphincter tone was normal there were no masses palpable. The [place] 570 scope was passed transanally and advanced under continuous direct vision without difficulty to the cecum. The colon was well prepared. The cecum was normal. The ascending colon revealed a 5 mm semipedunculated polyp. The polyp was removed with the cold snare and retrieved by suction. The transverse colon, descending colon, and sigmoid colon were normal. The rectum was normal on forward and retroflexed views. The procedure was well- tolerated overall and the patient was observed in recovery. Conclusions: Small ascending colon polyp. Otherwise normal study. Plan: Await pathology. Follow-up study in 5 to 10 years, depending upon pathology. The patient will call the office in 1 week to discuss the pathology report. Signed electronically: Devyn Levin M.D.
[2020-11-04 10:26] VITALS: BP 128/70
--- NOTE | 2020-11-04 12:25 | Post Anesthesia Evaluation ---
- Post Anesthesia Evaluation Patient Participated: Yes Airway Patent: Yes Stable Respiratory Function: Yes Nausea/Vomiting: No Temp > 96.8F: Yes Pain Manageable: Yes Adequeate Hydration: Yes Anesthesia Complications: No Block Receding Appropriately: Not Applicable Patient on Ventilator: No
== END 2020-11-04 10:02 | disposition home or self-care (01) ==
LOC: GIO 08:06
PROVIDERS: ATTEND Internal Medicine Gastroenterology
DX: Z12.11 Encounter for screening for malignant neoplasm of colon (principal); D12.2 Benign neoplasm of ascending colon; K63.89 Other specified diseases of intestine; K64.0 First degree hemorrhoids; I10 Essential (primary) hypertension; N17.0 Acute kidney failure with tubular necrosis; Z79.899 Other long term (current) drug therapy; Z98.890 Other specified postprocedural states
CPT/HCPCS: 45385; 88305; J2704; J7030

== ENCOUNTER 2021-06-26 00:22 | Emergency (ER) | payer BC ==
[2021-06-26] MEDS ORDERED: dexAMETHasone 20 MG/5 ML VIAL IM ONE (02:13)
[2021-06-26] MEDS ORDERED: KETOROLAC 30 MG/1 ML INJ IM ONE (02:13)
[2021-06-26] MEDS ORDERED: HYDROcodone/ACETAMINOPHEN 5-325 MG TAB PO ONE (03:28)
--- NOTE | 2021-06-26 03:44 | Emergency Department Report ---
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 There is an acute on chronic event for this patient. Patient rates pain at 8/10 burning tingling. Patient denies new fall injury or trauma. Patient has been diagnosed with sciatica currently on Flexeril and naproxen as needed pain and spasm. Patient states pain is not getting better. Patient has not seen orthopedics however. Patient ambulated to ED today patient is alert oriented x3 patient denies decrease in bowel or kei dder function. Patient denies dysuria frequency or urgency. Is been no fevers no chills. Patient denies other injury. MD Complaint: back pain - Related Data Home Medications Medication Instructions Recorded Confirmed Last Taken Losartan/Hydrochlorothiazide 10/28/20 Unknown [Losartan-Hctz 100-25 mg Tab] Previous Rx's Medication Instructions Recorded Last Taken Type HYDROcodone/APAP 5-325 [Argyle 1 each PO Q6HR PRN #10 tablet 06/30/18 Unknown Rx 5-325 mg TAB] Acetaminophen/Codeine [Tylenol 1 tab PO Q6H PRN #12 tab 06/26/21 Unknown Rx /Codeine # 3 tab] Diclofenac Dr [Nory Gilbert] 75 mg PO TID PRN #30 tablet 06/26/21 Unknown Rx Methyl Salicylate/Menth/Camph 1 each TP TID PRN #1 box 06/26/21 Unknown Rx [Salonpas 3.1%-6.0%-10.0% Patch] methOCARBAMOL [Robaxin TAB] 750 mg PO TID PRN #30 tablet 06/26/21 Unknown Rx predniSONE [Deltasone] 40 mg PO QDAY 5 Days #10 tab 06/26/21 Unknown Rx Allergies Allergy/AdvReac Type Severity Reaction Status Date / Time No Known Allergies Allergy Verified 06/26/18 05:04 ED Review of Systems ROS: Stated complaint: RT LEG PAIN Other details as noted in HPI Constitutional: denies: chills, fever Eyes: denies: eye pain, eye discharge, vision change ENT: denies: ear pain, throat pain Respiratory: denies: cough, shortness of breath, wheezing Cardiovascular: denies: chest pain, palpitations Endocrine: no symptoms reported Gastrointestinal: denies: abdominal pain, nausea, vomiting, diarrhea Genitourinary: denies: urgency, dysuria, discharge Musculoskeletal: back pain, arthralgia, myalgia Skin: denies: rash, lesions Neurological: denies: headache, weakness, paresthesias, vertigo Psychiatric: denies: anxiety, depression Hematological/Lymphatic: denies: easy bleeding, easy bruising ED Past Medical Hx - Past Medical History Hx Hypertension: Yes (norvasc, lisinopril ) Hx Asthma: No Hx HIV: No Additional medical history: Sciatica - Surgical History Additional Surgical History: tubal ligation - Social History Smoking Status: Never Smoker - Medications Home Medications: Home Medications Medication Instructions Recorded Confirmed Last Taken Type HYDROcodone/APAP 5-325 [Argyle 1 each PO Q6HR PRN #10 tablet 06/30/18 Unknown Rx 5-325 mg TAB] Losartan/Hydrochlorothiazide 10/28/20 Unknown History [Losartan-Hctz 100-25 mg Tab] Acetaminophen/Codeine [Tylenol 1 tab PO Q6H PRN #12 tab 06/26/21 Unknown Rx /Codeine # 3 tab] Diclofenac Dr [Voltaren Dr] 75 mg PO TID PRN #30 tablet 06/26/21 Unknown Rx Methyl Salicylate/Menth/Camph 1 each TP TID PRN #1 box 06/26/21 Unknown Rx [Salonpas 3.1%-6.0%-10.0% Patch] methOCARBAMOL [Robaxin TAB] 750 mg PO TID PRN #30 tablet 06/26/21 Unknown Rx predniSONE [Deltasone] 40 mg PO QDAY 5 Days #10 tab 06/26/21 Unknown Rx ED Physical Exam - General Limitations: No Limitations General appearance: alert, in no apparent distress - Head Head exam: Present: normocephalic, normal inspection - Eye Eye exam: Present: normal appearance, PERRL, EOMI. Absent: conjunctival injection, nystagmus Pupils: Present: normal accommodation - ENT ENT exam: Present: mucous membranes moist - Neck Neck exam: Present: normal inspection, full ROM. Absent: tenderness (No posterior vertebral point tenderness range of motion is intact unrestricted to all quadrants. There is no ecchymosis swelling or deformity.), meningismus, lymphadenopathy, thyromegaly - Respiratory Respiratory exam: Present: normal lung sounds bilaterally. Absent: respiratory distress, wheezes, stridor - Cardiovascular Cardiovascular Exam: Present: regular rate, normal rhythm, normal heart sounds. Absent: systolic murmur, diastolic murmur, rubs, gallop - GI/Abdominal GI/Abdominal exam: Present: soft, normal bowel sounds. Absent: distended, tenderness, bruit, hernia - Rectal Rectal exam: Present: deferred - Extremities Exam Extremities exam: Present: normal inspection, full ROM, normal capillary refill. Absent: tenderness - Back Exam Back exam: Present: tenderness (Right lateral lumbar region), muscle spasm, paraspinal tenderness (Right lateral lumbar). Absent: vertebral tenderness - Expanded Back Exam Expanded Back exam: Absent: saddle anesthesia Back exam: Sciatic Notch Tenderness: Right, Positive Straight Leg Raise: Right, Negative Straight Leg Raising: Left - Neurological Exam Neurological exam: Present: alert, oriented X3, CN II-XII intact, reflexes normal. Absent: motor sensory deficit - Expanded Neurological Exam Expanded Patient oriented to: Present: person, place, time Speech: Present: fluid speech Sensory exam: Lower Extremity Light Touch: Normal, Lower Extremity Pin Prick: Normal, Lower Extremity Temperature: Normal Motor strength exam: RUE: 5, LUE: 5, RLE: 5, LLE: 5 DTR: knee (R): 1+, knee (L): 1+ Best Eye Response (Simla): (4) open spontaneously Best Motor Response (Elin): (6) obeys commands Best Verbal Response (Simla): (5) oriented Elin Total: 15 - Psychiatric Psychiatric exam: Present: normal affect, normal mood - Skin Skin exam: Present: warm, dry, intact, normal color. Absent: rash ED Course Vital Signs 06/26/21 00:24 Temperature 98.8 F Pulse Rate 74 Respiratory 20 Rate Blood Pressure 157/75 [Right] ED Medical Decision Making - Radiology Data Radiology results: report reviewed, image reviewed LUMBAR SPINE 2 VIEWS INDICATION: Low back pain. COMPARISON: No relevant prior imaging study available. FINDINGS: VERTEBRAE: No acute fracture. Normal alignment. DISC SPACES: Mild osteophyte formation is noted anteriorly at L4-L5. No other significant abnormality. FACET JOINTS: There is mild facet arthropathy at L4-L5 and L5-S1. SOFT TISSUES: No significant abnormality. ADDITIONAL FINDINGS: No additional significant findings. IMPRESSION: 1. No acute findings. 2. Mild lumbar spondylosis. Signer Name: Vlad Matute MD Signed: 06/26/2021 3:53 AM Workstation Name: [id number] Transcribed By: WIL Dictated By: Vlad Matute MD Electronically Authenticated By: Vlad Matute MD Signed Date/Time: 06/26/21352 DD/ 1 TD/TT: - Medical Decision Making X-ray demonstrates no acute fracture dislocation or subluxation. Noted moderate arthralgia and spondylosis. Plan DC to home NSAIDs as needed pain muscle relaxant, analgesic balm back exercises follow-up with orthopedics. Patient verbalized agreement understanding with discharge plan. Patient DC'd home in stable condition at this time. Patient is currently alert oriented x3 patient is ambulatory gait is steady. Patient states pain is improved. Critical care attestation.: If time is entered above; I have spent that time in minutes in the direct care of this critically ill patient, excluding procedure time. ED Disposition Clinical Impression: Lumbar spondylolysis Low back strain Qualifiers: Encounter type: initial encounter Qualified Code(s): S39.012A - Strain of muscle, fascia and tendon of lower back, initial encounter Disposition: 01 HOME / SELF CARE / HOMELESS Is pt being admited?: No Does the pt Need Aspirin: No Condition: Stable Instructions: Low Back Sprain or Strain Rehab-SportsMed, Spondylolysis, Back Injury Prevention Additional Instructions: Take medications as prescribed, follow-up with your doctor in 2 to 3 days. Return to emergency department should symptoms worsen. Prescriptions: predniSONE [Deltasone] 40 mg PO QDAY 5 Days #10 tab methOCARBAMOL [Robaxin TAB] 750 mg PO TID PRN #30 tablet PRN Reason: Muscle Spasm Methyl Salicylate/Menth/Camph [Salonpas 3.1%-6.0%-10.0% Patch] 1 each TP TID PRN #1 box PRN Reason: pain Acetaminophen/Codeine [Tylenol /Codeine # 3 tab] 1 tab PO Q6H PRN #12 tab PRN Reason: Pain Diclofenac Dr [Voltaren Dr] 75 mg PO TID PRN #30 tablet PRN Reason: pain Referrals: PATRICIA LOMELI MD [Staff Physician] - 2-3 Days Forms: Work/School Release Form(ED) Time of Disposition: 05:04
--- NOTE | 2021-06-26 03:57 | XRay Report ---
LUMBAR SPINE 2 VIEWS INDICATION: Low back pain. COMPARISON: No relevant prior imaging study available. FINDINGS: VERTEBRAE: No acute fracture. Normal alignment. DISC SPACES: Mild osteophyte formation is noted anteriorly at L4-L5. No other significant abnormality . FACET JOINTS: There is mild facet arthropathy at L4-L5 and L5-S1. SOFT TISSUES: No significant abnormality. ADDITIONAL FINDINGS: No additional significant findings. IMPRESSION: 1. No acute findings. 2. Mild lumbar spondylosis. Signer Name: Vlad Matute MD Signed: 06/26/2021 3:53 AM Workstation Name: [id number]
[2021-06-26 05:12] VITALS: BP 163/79
== END 2021-06-26 06:27 | disposition home or self-care (01) ==
LOC: ED 00:22
DX: S39.012A Strain of muscle, fascia and tendon of lower back, initial encounter (principal); M43.06 Spondylolysis, lumbar region; X58.XXXA Exposure to other specified factors, initial encounter; Y93.89 Activity, other specified; Y92.89 Other specified places as the place of occurrence of the external cause; Y99.8 Other external cause status
CPT/HCPCS: 72100; 96372; 99283; J1100; J1885

== ENCOUNTER 2021-07-10 10:02 | Outpatient (CLI) | payer BC ==
--- NOTE | 2021-07-10 13:23 | Magnetic Resonance Report ---
MR lumbar spine wo con INDICATION / CLINICAL INFORMATION: 61 years Female; M54.50 LOW BACK PAIN,UNSPECIFIED. TECHNIQUE: Multisequence, multiplanar images of the lumbar spine were obtained. COMPARISON: None available. FINDINGS: ALIGNMENT: There is no significant spondylolisthesis or scoliosis of the lumbar spine. VERTEBRAE:There is milder disc space narrowing with mild chronic endplate changes at L4-5. There is n o significant edema of the lumbar vertebral bodies. VISUALIZED SPINAL CORD: The motion degrades image quality despite repeat imaging. However, the distal spinal cord appears to demonstrate appropriate signal intensity and terminates at T12-L1. [id number] ANALYSIS: L1-2: No significant abnormality. L2-3: No significant abnormality. L3-4: There is left foraminal disc bulge and annular tear with mild left foraminal narrowing. There i s no significant central spinal stenosis. L4-5: There is a right foraminal disc protrusion which displaces the exiting right L4 nerve root leal th. There is slight encroachment on the right lateral recess. There is small right facet joint effusi on. L5-S1: There is no disc protrusion or significant stenosis. There is suggestion of asymmetric sacrali zation of the left transverse process of L5. PARASPINAL SOFT TISSUES: No significant abnormality. ADDITIONAL FINDINGS: No epidural collections are identified. IMPRESSION: 1. There is a right foraminal disc protrusion at L4-5 which displaces the exiting right L4 nerve root sheath. Signer Name: Jarad Pierre MD Signed: 07/10/2021 1:19 PM Workstation Name: [id number]
== END 2021-07-10 10:03 | disposition home or self-care (01) ==
LOC: MRI 10:02
PROVIDERS: ATTEND Orthopaedic Surgery
DX: M51.36 Other intervertebral disc degeneration, lumbar region (principal); M48.07 Spinal stenosis, lumbosacral region
CPT/HCPCS: 72148